=== PATIENT | male | born 1940 | race African-American/Black ===

== ENCOUNTER 2019-02-22 10:07 | Inpatient (IN) ==
[2019-02-22] MEDS ORDERED: ONDANSETRON 4 MG/2 ML VIAL IV STA (10:39)
[2019-02-22] MEDS ORDERED: SODIUM CHLORIDE 0.9% 1,000 ML IV STA (10:39)
[2019-02-22 11:23] LABS: Basophils # 0.1 10*3/uL (0.0-0.2); Basophils % 0.5 % (0.0-0.8); Eosinophils # 0.1 10*3/uL (0.0-0.87); Hemoglobin 15.5 GM/DL (14.0-18.0); Immature Granulocytes % 0.5 %; Immature Granulocytes Absolute 0.05 #; Lymphocytes # 1.5 10*3/uL (1.4-4.0); Lymphocytes % 14.5 % (21.2-54.2); Mean Platelet Volume 11.3 FL (9.6-12.0); Monocytes % 9.9 % (1.7-12.7); NRBC # 0.04 10*3/uL; Neutrophils % 73.6 % (38.7-73.9); Platelet Count 270 T/CUMM (130-400); Red Cell Distribution Width 14.4 % (9.3-17.3); White Blood Count 10.5 T/CUMM (4-12)
[2019-02-22 11:41] LABS: Albumin 3.6 G/DL (3.4-5.0); Bilirubin,Total 1.2 MG/DL (0.2-1.0); Calcium 8.8 MG/DL (8.5-10.1); Osmolality,Calculated 298.8 MOS/KG (273-304); Total Protein 6.5 G/DL (6.4-8.3)
[2019-02-22 12:01] LABS: Amorphous Crystals,Urine Few /HPF (Few); Apearance,Urine Slightly Hazy (Clear); Bilirubin,Urine Negative (Negative); Blood, Urine Negative (Negative); Glucose,Urine (UA) Negative (Negative); Hyaline Casts,Urine 58 /LPF (0-3); Ketones,Urine Negative (Negative); Mucus,Urine Occasional /LPF (Occasional); Nitrite,Urine Negative (Negative); Protein,Urine 100 MG/DL; Squamous Epithelial Cell,Urine Occasional /HPF (0-10); Urine Color Yellow (Yellow); Urine Specific Gravity 1.016 (1.001-1.035); Urine Urobilinogen < 2.0 EU/DL (0.2-1.0)
[2019-02-22 12:09] LABS: Barbiturates Screen,Urine Negative (Negative); Benzodiazepines Screen,Urine Negative (Negative); Cannabinoid Screen,Urine Negative (Negative); Opiate Screen,Urine Negative (Negative); Phencyclidine Screen,Urine Negative (Negative)
[2019-02-22] MEDS ORDERED: ACETAMINOPHEN 325 MG TABLET PO PRN (14:01)
[2019-02-22] MEDS ORDERED: MORPHINE 4 MG/1 ML VIAL IV PRN (14:01)
[2019-02-22] MEDS ORDERED: DEXTROSE 10% 250 ML BAG IV PRN (14:01)
[2019-02-22] MEDS ORDERED: GLUCAGON 1 MG VIAL IM PRN (14:01)
[2019-02-22] MEDS ORDERED: ALBUTEROL 2.5 MG/3 ML NEB RESP TX PRN (14:01)
[2019-02-22] MEDS ORDERED: ENOXAPARIN 30 MG/0.3 ML SYRINGE SUBCUT SCH (14:30)
[2019-02-22] MEDS ORDERED: SODIUM CHLORIDE 0.9% 500 ML IV ONE ×2 (16:07→22:33)
[2019-02-22] MEDS: INSULIN LISPRO 100 UNIT/ML SUBCUT SCH ×2 (17:50→22:07)
[2019-02-22] MEDS: SODIUM CHLORIDE 0.9% 1,000 ML IV SCH (18:27)
[2019-02-22] MEDS: ATORVASTATIN 20 MG TABLET PO SCH (19:18)
[2019-02-22 20:31] LABS: Apearance,Urine Slightly Hazy (Clear); Bacteria,Urine Occasional /HPF (Few); Bilirubin,Urine Negative (Negative); Blood, Urine Large mg/dL (Negative); Glucose,Urine (UA) Negative (Negative); Hyaline Casts,Urine 57 /LPF (0-3); Ketones,Urine Negative (Negative); Mucus,Urine Occasional /LPF (Occasional); Nitrite,Urine Negative (Negative); Protein,Urine 100 MG/DL; RBC,Urine 12 /HPF (0-4); Urine Color Amber (Yellow); Urine Specific Gravity 1.019 (1.001-1.035); Urine Urobilinogen < 2.0 EU/DL (0.2-1.0); WBC,Urine 9 /HPF (0-6)
[2019-02-22] MEDS: APIXABAN 2.5 MG TABLET PO SCH (22:00)
[2019-02-22] MEDS: ASCORBIC ACID 500 MG TABLET PO SCH (22:00)
[2019-02-22] MEDS: FLECAINIDE 50 MG TABLET PO SCH (22:00)
[2019-02-23] MEDS: SODIUM CHLORIDE 0.9% 1,000 ML IV SCH ×2 (04:30→18:43)
[2019-02-23 06:26] LABS: Basophils % 0.1 % (0.0-0.8); Hematocrit 45.6 VOL% (42.0-52.0); Immature Granulocytes % 0.6 %; Immature Granulocytes Absolute 0.13 #; Lymphocytes # 1.1 10*3/uL (1.4-4.0); Lymphocytes % 5.2 % (21.2-54.2); Mean Corpuscular HGB Conc 32.9 GM/DL (32-36); Mean Corpuscular Volume 87.5 FL (87-102); Monocytes % 5.6 % (1.7-12.7); Neutrophils % 88.5 % (38.7-73.9); Platelet Count 247 T/CUMM (130-400); Red Blood Count 5.21 MC/CUMM (3.8-5.5); Red Cell Distribution Width 14.5 % (9.3-17.3); White Blood Count 20.7 T/CUMM (4-12)
[2019-02-23 06:49] LABS: Lymphocytes 2 % (20-55); Nucleated Red Blood Cells 2 (0-5); Platelet Estimate Adequate; Segmented Neutrophils 95 % (50-85); Total Cells Counted 100
[2019-02-23 06:52] LABS: Calcium 8.4 MG/DL (8.5-10.1); Osmolality,Calculated 307.4 MOS/KG (273-304)
[2019-02-23] MEDS: INSULIN LISPRO 100 UNIT/ML SUBCUT SCH ×4 (07:22→20:22)
[2019-02-23] MEDS: FLECAINIDE 50 MG TABLET PO SCH ×2 (08:58→20:21)
[2019-02-23] MEDS: ASPIRIN EC 81 MG TABLET PO SCH (08:59)
[2019-02-23] MEDS: DIGOXIN 0.125 MG TABLET PO SCH (08:59)
[2019-02-23] MEDS: PANTOPRAZOLE 40 MG TABLET PO SCH (08:59)
[2019-02-23] MEDS: ASCORBIC ACID 500 MG TABLET PO SCH ×2 (08:59→20:22)
[2019-02-23] MEDS: APIXABAN 2.5 MG TABLET PO SCH ×2 (08:59→20:22)
[2019-02-23] MEDS ORDERED: PIPERACILLIN/TAZOBACTAM 3,375 MG in SODIUM CHLORIDE 0.9% 100 ML IV ONE (14:21)
[2019-02-23] MEDS: ATORVASTATIN 20 MG TABLET PO SCH (20:21)
[2019-02-23] MEDS: PIPERACILLIN/TAZOBACTAM 2,250 MG in SODIUM CHLORIDE 0.9% 100 ML IV SCH (23:13)
[2019-02-24] MEDS: PIPERACILLIN/TAZOBACTAM 2,250 MG in SODIUM CHLORIDE 0.9% 100 ML IV SCH ×2 (06:18→14:56)
[2019-02-24 07:06] LABS: Basophils % 0.3 % (0.0-0.8); Eosinophils % 0.3 % (0.00-10.9); Hematocrit 45.4 VOL% (42.0-52.0); Immature Granulocytes % 0.6 %; Immature Granulocytes Absolute 0.06 #; Lymphocytes # 1.1 10*3/uL (1.4-4.0); Lymphocytes % 10.1 % (21.2-54.2); Mean Corpuscular HGB Conc 30.8 GM/DL (32-36); Mean Corpuscular Volume 93.2 FL (87-102); Mean Platelet Volume 11.6 FL (9.6-12.0); Monocytes % 9.3 % (1.7-12.7); NRBC # 0.21 10*3/uL; Neutrophils % 79.4 % (38.7-73.9); Platelet Count 174 T/CUMM (130-400); Red Blood Count 4.87 MC/CUMM (3.8-5.5); Red Cell Distribution Width 14.6 % (9.3-17.3); White Blood Count 10.8 T/CUMM (4-12)
[2019-02-24 07:20] LABS: Osmolality,Calculated 300.1 MOS/KG (273-304)
[2019-02-24] MEDS: INSULIN LISPRO 100 UNIT/ML SUBCUT SCH ×4 (07:34→22:09)
[2019-02-24] MEDS: SODIUM CHLORIDE 0.9% 1,000 ML IV SCH ×3 (07:34→22:56)
[2019-02-24] MEDS: ONDANSETRON 4 MG/2 ML VIAL IV PRN (07:35)
[2019-02-24 07:43] LABS: Albumin 2.4 G/DL (3.4-5.0); Bilirubin,Direct 0.56 MG/DL (0.0-0.20); Bilirubin,Indirect 0.8 MG/DL (0.0-1.0); Bilirubin,Total 1.4 MG/DL (0.2-1.0)
[2019-02-24] MEDS ORDERED: FUROSEMIDE 40 MG/4 ML VIAL IV ONE (08:18)
[2019-02-24] MEDS ORDERED: ALUM/MAG/SIMETH/LIDO VISC 1:1 30 ML BOTTLE PO ONE (08:18)
[2019-02-24] MEDS: DOCUSATE SODIUM 100 MG CAPSULE PO SCH ×2 (09:53→20:40)
[2019-02-24] MEDS: DIGOXIN 0.125 MG TABLET PO SCH (09:53)
[2019-02-24] MEDS: FLECAINIDE 50 MG TABLET PO SCH ×2 (09:53→20:40)
[2019-02-24] MEDS: POLYETHYLENE GLYCOL POWDER 17 GM PACK PO SCH (09:53)
[2019-02-24] MEDS: APIXABAN 2.5 MG TABLET PO SCH ×2 (09:54→20:40)
[2019-02-24] MEDS: ASPIRIN EC 81 MG TABLET PO SCH (09:54)
[2019-02-24] MEDS: ASCORBIC ACID 500 MG TABLET PO SCH ×2 (09:54→20:40)
[2019-02-24] MEDS: PANTOPRAZOLE 40 MG TABLET PO SCH (09:54)
[2019-02-24] MEDS: SODIUM BICARBONATE 650 MG TABLET PO SCH ×2 (15:19→20:40)
[2019-02-24] MEDS: ATORVASTATIN 20 MG TABLET PO SCH (20:40)
[2019-02-25] MEDS: PIPERACILLIN/TAZOBACTAM 2,250 MG in SODIUM CHLORIDE 0.9% 100 ML IV SCH ×3 (00:06→17:59)
[2019-02-25 05:33] LABS: Basophils % 0.2 % (0.0-0.8); Eosinophils # 0.1 10*3/uL (0.0-0.87); Eosinophils % 1.2 % (0.00-10.9); Hematocrit 41.1 VOL% (42.0-52.0); Hemoglobin 13.4 GM/DL (14.0-18.0); Immature Granulocytes % 0.5 %; Immature Granulocytes Absolute 0.04 #; Lymphocytes % 12.3 % (21.2-54.2); Mean Corpuscular HGB Conc 32.6 GM/DL (32-36); Mean Corpuscular Volume 86.9 FL (87-102); Mean Platelet Volume 11.4 FL (9.6-12.0); Monocytes % 9.3 % (1.7-12.7); NRBC # 0.07 10*3/uL; Neutrophils % 76.5 % (38.7-73.9); Platelet Count 209 T/CUMM (130-400); Red Blood Count 4.73 MC/CUMM (3.8-5.5); Red Cell Distribution Width 14.2 % (9.3-17.3); White Blood Count 8.5 T/CUMM (4-12)
[2019-02-25 06:16] LABS: Calcium 7.8 MG/DL (8.5-10.1); Osmolality,Calculated 292.2 MOS/KG (273-304)
[2019-02-25] MEDS: INSULIN LISPRO 100 UNIT/ML SUBCUT SCH ×4 (07:50→20:11)
[2019-02-25] MEDS: POLYETHYLENE GLYCOL POWDER 17 GM PACK PO SCH (08:20)
[2019-02-25] MEDS: SODIUM BICARBONATE 650 MG TABLET PO SCH ×2 (08:20→20:10)
[2019-02-25] MEDS: FLECAINIDE 50 MG TABLET PO SCH ×2 (08:20→20:11)
[2019-02-25] MEDS: APIXABAN 2.5 MG TABLET PO SCH ×2 (08:20→20:11)
[2019-02-25] MEDS: PANTOPRAZOLE 40 MG TABLET PO SCH (08:20)
[2019-02-25] MEDS: ASPIRIN EC 81 MG TABLET PO SCH (08:20)
[2019-02-25] MEDS: DOCUSATE SODIUM 100 MG CAPSULE PO SCH ×2 (08:20→20:11)
[2019-02-25] MEDS: ASCORBIC ACID 500 MG TABLET PO SCH ×2 (08:20→20:11)
[2019-02-25] MEDS: SODIUM CHLORIDE 0.9% 1,000 ML IV SCH (09:48)
[2019-02-25] MEDS: SODIUM BICARB INJ 100 MEQ in STERILE WATER INJ 1,000 ML IV SCH (10:00)
[2019-02-25] MEDS: DIGOXIN 0.25 MG TABLET PO SCH (12:25)
[2019-02-25] MEDS: ATORVASTATIN 20 MG TABLET PO SCH (17:59)
[2019-02-25] MEDS: ONDANSETRON 4 MG/2 ML VIAL IV PRN (23:54)
[2019-02-26] MEDS: PIPERACILLIN/TAZOBACTAM 2,250 MG in SODIUM CHLORIDE 0.9% 100 ML IV SCH ×3 (03:22→17:04)
[2019-02-26 06:09] LABS: Basophils % 0.2 % (0.0-0.8); Eosinophils # 0.1 10*3/uL (0.0-0.87); Eosinophils % 1.7 % (0.00-10.9); Hematocrit 42.4 VOL% (42.0-52.0); Hemoglobin 13.8 GM/DL (14.0-18.0); Immature Granulocytes % 0.5 %; Immature Granulocytes Absolute 0.04 #; Lymphocytes # 1.2 10*3/uL (1.4-4.0); Lymphocytes % 15.1 % (21.2-54.2); Mean Corpuscular HGB Conc 32.5 GM/DL (32-36); Mean Corpuscular Volume 87.8 FL (87-102); Mean Platelet Volume 11.1 FL (9.6-12.0); Monocytes % 10.4 % (1.7-12.7); NRBC # 0.02 10*3/uL; Neutrophils % 72.1 % (38.7-73.9); Platelet Count 185 T/CUMM (130-400); Red Blood Count 4.83 MC/CUMM (3.8-5.5); Red Cell Distribution Width 14.4 % (9.3-17.3); White Blood Count 8.1 T/CUMM (4-12)
[2019-02-26 08:56] LABS: Calcium 8.3 MG/DL (8.5-10.1); Osmolality,Calculated 296.7 MOS/KG (273-304)
[2019-02-26] MEDS: DOCUSATE SODIUM 100 MG CAPSULE PO SCH ×2 (09:03→21:56)
[2019-02-26] MEDS: INSULIN LISPRO 100 UNIT/ML SUBCUT SCH ×4 (09:03→21:56)
[2019-02-26] MEDS: APIXABAN 2.5 MG TABLET PO SCH ×2 (09:03→21:56)
[2019-02-26] MEDS: FLECAINIDE 100 MG TABLET PO SCH ×2 (09:03→21:57)
[2019-02-26] MEDS: SODIUM BICARBONATE 650 MG TABLET PO SCH ×2 (09:04→21:57)
[2019-02-26] MEDS: PANTOPRAZOLE 40 MG TABLET PO SCH (09:04)
[2019-02-26] MEDS: ASCORBIC ACID 500 MG TABLET PO SCH ×2 (09:04→21:57)
[2019-02-26] MEDS: ASPIRIN EC 81 MG TABLET PO SCH (09:04)
[2019-02-26] MEDS: POLYETHYLENE GLYCOL POWDER 17 GM PACK PO SCH (09:04)
[2019-02-26] MEDS: METOPROLOL TARTRATE 25 MG TABLET PO SCH ×2 (09:05→21:57)
[2019-02-26] MEDS: SODIUM BICARB INJ 100 MEQ in STERILE WATER INJ 1,000 ML IV SCH (10:20)
[2019-02-26] MEDS: DIGOXIN 0.25 MG TABLET PO SCH (13:40)
[2019-02-26] MEDS: SODIUM CHLORIDE 0.45% 1,000 ML IV SCH (15:00)
[2019-02-27] MEDS: PIPERACILLIN/TAZOBACTAM 2,250 MG in SODIUM CHLORIDE 0.9% 100 ML IV SCH ×3 (02:38→18:55)
[2019-02-27 05:33] LABS: Basophils % 0.2 % (0.0-0.8); Eosinophils # 0.2 10*3/uL (0.0-0.87); Eosinophils % 1.8 % (0.00-10.9); Hematocrit 41.8 VOL% (42.0-52.0); Hemoglobin 13.7 GM/DL (14.0-18.0); Immature Granulocytes % 0.7 %; Immature Granulocytes Absolute 0.06 #; Lymphocytes # 1.2 10*3/uL (1.4-4.0); Lymphocytes % 14.8 % (21.2-54.2); Mean Corpuscular HGB Conc 32.8 GM/DL (32-36); Mean Corpuscular Volume 86.4 FL (87-102); Monocytes % 10.5 % (1.7-12.7); NRBC # 0.04 10*3/uL; Platelet Count 244 T/CUMM (130-400); Red Blood Count 4.84 MC/CUMM (3.8-5.5); Red Cell Distribution Width 14.3 % (9.3-17.3); White Blood Count 8.4 T/CUMM (4-12)
[2019-02-27 06:00] LABS: Calcium 8.4 MG/DL (8.5-10.1); Osmolality,Calculated 296.5 MOS/KG (273-304)
[2019-02-27] MEDS ORDERED: MIDAZOLAM 2 MG/2 ML VIAL IV ONE ×2 (08:36)
[2019-02-27] MEDS ORDERED: MIDAZOLAM 2 MG/2 ML VIAL ONE (08:36)
[2019-02-27] MEDS ORDERED: HYDROmorphone 2 MG/1 ML VIAL IV ONE (08:36)
[2019-02-27] MEDS: INSULIN LISPRO 100 UNIT/ML SUBCUT SCH ×4 (09:15→21:37)
[2019-02-27] MEDS: ASPIRIN EC 81 MG TABLET PO SCH (10:48)
[2019-02-27] MEDS: ASCORBIC ACID 500 MG TABLET PO SCH ×2 (10:48→21:37)
[2019-02-27] MEDS: DOCUSATE SODIUM 100 MG CAPSULE PO SCH ×2 (10:48→21:37)
[2019-02-27] MEDS: SODIUM BICARBONATE 650 MG TABLET PO SCH ×2 (10:48→21:37)
[2019-02-27] MEDS: APIXABAN 2.5 MG TABLET PO SCH ×2 (10:48→21:37)
[2019-02-27] MEDS: PANTOPRAZOLE 40 MG TABLET PO SCH (10:49)
[2019-02-27] MEDS: FLECAINIDE 100 MG TABLET PO SCH ×2 (10:49→21:37)
[2019-02-27] MEDS: METOPROLOL TARTRATE 25 MG TABLET PO SCH ×2 (10:49→21:37)
[2019-02-27] MEDS: POLYETHYLENE GLYCOL POWDER 17 GM PACK PO SCH (10:49)
[2019-02-27] MEDS: SODIUM CHLORIDE 0.45% 1,000 ML IV SCH (13:03)
[2019-02-27] MEDS: DIGOXIN 0.25 MG TABLET PO SCH (16:37)
[2019-02-28] MEDS: PIPERACILLIN/TAZOBACTAM 2,250 MG in SODIUM CHLORIDE 0.9% 100 ML IV SCH ×2 (01:49→09:36)
[2019-02-28 05:47] LABS: Basophils % 0.2 % (0.0-0.8); Eosinophils # 0.1 10*3/uL (0.0-0.87); Eosinophils % 0.6 % (0.00-10.9); Hematocrit 47.3 VOL% (42.0-52.0); Hemoglobin 14.9 GM/DL (14.0-18.0); Immature Granulocytes % 0.8 %; Immature Granulocytes Absolute 0.07 #; Lymphocytes # 1.2 10*3/uL (1.4-4.0); Mean Corpuscular HGB Conc 31.5 GM/DL (32-36); Mean Corpuscular Volume 89.1 FL (87-102); Mean Platelet Volume 11.1 FL (9.6-12.0); Monocytes % 12.3 % (1.7-12.7); NRBC # 0.09 10*3/uL; Neutrophils % 72.1 % (38.7-73.9); Platelet Count 223 T/CUMM (130-400); Red Blood Count 5.31 MC/CUMM (3.8-5.5); Red Cell Distribution Width 14.5 % (9.3-17.3); White Blood Count 8.3 T/CUMM (4-12)
[2019-02-28 06:35] LABS: Calcium 8.6 MG/DL (8.5-10.1); Osmolality,Calculated 283.5 MOS/KG (273-304)
[2019-02-28] MEDS: SODIUM CHLORIDE 0.45% 1,000 ML IV SCH (08:10)
[2019-02-28] MEDS: INSULIN LISPRO 100 UNIT/ML SUBCUT SCH ×4 (08:12→21:34)
[2019-02-28] MEDS: FLECAINIDE 100 MG TABLET PO SCH ×2 (08:33→21:34)
[2019-02-28] MEDS: ASPIRIN EC 81 MG TABLET PO SCH (08:33)
[2019-02-28] MEDS: ASCORBIC ACID 500 MG TABLET PO SCH ×2 (08:33→21:34)
[2019-02-28] MEDS: DOCUSATE SODIUM 100 MG CAPSULE PO SCH ×2 (08:33→21:34)
[2019-02-28] MEDS: PANTOPRAZOLE 40 MG TABLET PO SCH (08:33)
[2019-02-28] MEDS: APIXABAN 2.5 MG TABLET PO SCH ×2 (08:34→21:34)
[2019-02-28] MEDS: POLYETHYLENE GLYCOL POWDER 17 GM PACK PO SCH (08:34)
[2019-02-28] MEDS: METOPROLOL TARTRATE 25 MG TABLET PO SCH ×2 (08:35→21:34)
[2019-02-28] MEDS: hydrALAZINE 25 MG TABLET PO SCH ×3 (08:35→21:33)
[2019-02-28] MEDS ORDERED: SODIUM BICARBONATE 50 MEQ/50 ML VIAL IV ONE (08:36)
[2019-02-28] MEDS: SODIUM BICARBONATE 650 MG TABLET PO SCH ×2 (08:38→21:33)
[2019-02-28] MEDS: DIGOXIN 0.25 MG TABLET PO SCH (13:55)
[2019-03-01 06:06] LABS: Basophils % 0.3 % (0.0-0.8); Eosinophils # 0.1 10*3/uL (0.0-0.87); Hematocrit 48.2 VOL% (42.0-52.0); Hemoglobin 15.6 GM/DL (14.0-18.0); Lymphocytes # 1.5 10*3/uL (1.4-4.0); Lymphocytes % 15.4 % (21.2-54.2); Mean Corpuscular HGB Conc 32.4 GM/DL (32-36); Mean Corpuscular Volume 87.3 FL (87-102); Mean Platelet Volume 10.9 FL (9.6-12.0); Monocytes % 12.2 % (1.7-12.7); NRBC # 0.07 10*3/uL; Neutrophils % 70.1 % (38.7-73.9); Platelet Count 268 T/CUMM (130-400); Red Blood Count 5.52 MC/CUMM (3.8-5.5); Red Cell Distribution Width 15.3 % (9.3-17.3); White Blood Count 9.7 T/CUMM (4-12)
[2019-03-01 07:07] LABS: Albumin 2.4 G/DL (3.4-5.0); Bilirubin,Direct 0.44 MG/DL (0.0-0.20); Bilirubin,Indirect 0.7 MG/DL (0.0-1.0); Bilirubin,Total 1.1 MG/DL (0.2-1.0); Calcium 8.6 MG/DL (8.5-10.1); Osmolality,Calculated 280.7 MOS/KG (273-304); Total Protein 6.3 G/DL (6.4-8.3)
[2019-03-01] MEDS: INSULIN LISPRO 100 UNIT/ML SUBCUT SCH ×4 (07:43→22:33)
[2019-03-01] MEDS: ASCORBIC ACID 500 MG TABLET PO SCH ×2 (09:11→22:32)
[2019-03-01] MEDS: ASPIRIN EC 81 MG TABLET PO SCH (09:11)
[2019-03-01] MEDS: PANTOPRAZOLE 40 MG TABLET PO SCH (09:11)
[2019-03-01] MEDS: DOCUSATE SODIUM 100 MG CAPSULE PO SCH ×2 (09:11→22:32)
[2019-03-01] MEDS: FLECAINIDE 100 MG TABLET PO SCH ×2 (09:11→23:03)
[2019-03-01] MEDS: hydrALAZINE 25 MG TABLET PO SCH ×3 (09:11→22:33)
[2019-03-01] MEDS: SODIUM BICARBONATE 650 MG TABLET PO SCH ×2 (09:11→22:32)
[2019-03-01] MEDS: POLYETHYLENE GLYCOL POWDER 17 GM PACK PO SCH (09:11)
[2019-03-01] MEDS: METOPROLOL TARTRATE 25 MG TABLET PO SCH ×2 (09:11→22:34)
[2019-03-01] MEDS: APIXABAN 2.5 MG TABLET PO SCH ×2 (09:11→22:33)
[2019-03-01] MEDS: DIGOXIN 0.25 MG TABLET PO SCH (13:40)
[2019-03-01] MEDS: ALBUMIN 25% 25 GM in PREMIX 1 EACH IV SCH (18:27)
[2019-03-02] MEDS: ALBUMIN 25% 25 GM in PREMIX 1 EACH IV SCH ×3 (00:46→16:44)
[2019-03-02 06:35] LABS: Basophils % 0.1 % (0.0-0.8); Eosinophils # 0.1 10*3/uL (0.0-0.87); Eosinophils % 0.8 % (0.00-10.9); Hematocrit 39.3 VOL% (42.0-52.0); Hemoglobin 13.3 GM/DL (14.0-18.0); Immature Granulocytes Absolute 0.12 #; Lymphocytes # 1.1 10*3/uL (1.4-4.0); Lymphocytes % 9.8 % (21.2-54.2); Mean Corpuscular HGB Conc 33.8 GM/DL (32-36); Mean Corpuscular Volume 85.2 FL (87-102); Mean Platelet Volume 11.1 FL (9.6-12.0); Monocytes % 10.8 % (1.7-12.7); NRBC # 0.03 10*3/uL; Neutrophils % 77.5 % (38.7-73.9); Platelet Count 224 T/CUMM (130-400); Red Blood Count 4.61 MC/CUMM (3.8-5.5); Red Cell Distribution Width 14.2 % (9.3-17.3); White Blood Count 11.6 T/CUMM (4-12)
[2019-03-02 06:59] LABS: Calcium 9.2 MG/DL (8.5-10.1); Osmolality,Calculated 290.8 MOS/KG (273-304)
[2019-03-02 07:14] LABS: Albumin 3.2 G/DL (3.4-5.0); Bilirubin,Total 1.7 MG/DL (0.2-1.0); Calcium 8.9 MG/DL (8.5-10.1); Total Protein 6.5 G/DL (6.4-8.3)
[2019-03-02 10:29] LABS: Hepatitis B Core IgM Quant 0.27 Index; Hepatitis B Surface Ag Quant < 0.10 Index; Hepatitis B Surface Ag Result Negative (Negative); Hepatitis C Virus Ab Quant < 0.02 Index; Hepatitis C Virus Ab Result Negative (Negative)
[2019-03-02] MEDS: INSULIN LISPRO 100 UNIT/ML SUBCUT SCH ×3 (11:06→16:52)
[2019-03-02] MEDS: DOCUSATE SODIUM 100 MG CAPSULE PO SCH (11:07)
[2019-03-02] MEDS: hydrALAZINE 25 MG TABLET PO SCH ×2 (11:07→15:48)
[2019-03-02] MEDS: ASPIRIN EC 81 MG TABLET PO SCH (11:07)
[2019-03-02] MEDS: ASCORBIC ACID 500 MG TABLET PO SCH (11:08)
[2019-03-02] MEDS: PANTOPRAZOLE 40 MG TABLET PO SCH (11:08)
[2019-03-02] MEDS: APIXABAN 2.5 MG TABLET PO SCH (11:08)
[2019-03-02] MEDS: METOPROLOL TARTRATE 25 MG TABLET PO SCH (11:08)
[2019-03-02] MEDS: SODIUM BICARBONATE 650 MG TABLET PO SCH (11:08)
[2019-03-02] MEDS: POLYETHYLENE GLYCOL POWDER 17 GM PACK PO SCH (11:09)
[2019-03-02] MEDS: FLECAINIDE 100 MG TABLET PO SCH (11:12)
[2019-03-02] MEDS: DIGOXIN 0.25 MG TABLET PO SCH (12:44)
[2019-03-02 16:30] VITALS: BP 110/79
== END 2019-03-02 17:24 | disposition swing bed (61) | DRG 682 ==
LOC: N.EDINP 10:07 → N.ED 10:07 → SUATTDRO 12:18 → N.5E 15:36 → N.ICU 16:54 → N.TELES 03-01 00:43
PROVIDERS: ADMIT Internal Medicine; ATTEND Family Medicine

== ENCOUNTER 2019-03-13 15:57 | Inpatient (IN) ==
[2019-03-13] MEDS ORDERED: ZALEPLON 5 MG CAPSULE PO PRN (16:09)
[2019-03-13] MEDS ORDERED: ONDANSETRON 4 MG/2 ML VIAL IV PRN (16:09)
[2019-03-13] MEDS ORDERED: MAGNESIUM SULF RIDER 2 GM in PREMIX 1 EACH IV PRN (16:09)
[2019-03-13] MEDS ORDERED: diphenhydrAMINE CAP 25 MG CAPSULE PO PRN (16:09)
[2019-03-13] MEDS ORDERED: BISACODYL 5 MG TABLET PO PRN (16:09)
[2019-03-13] MEDS ORDERED: MAGNESIUM SULF RIDER 4 GM in PREMIX 1 EACH IV PRN (16:09)
[2019-03-13] MEDS ORDERED: guaiFENesin/DM ER 600-30 MG TABLET PO PRN (16:09)
[2019-03-13] MEDS ORDERED: LACTULOSE 20 GM/30 ML UDCUP PO PRN (16:09)
[2019-03-13] MEDS ORDERED: ACETAMINOPHEN 325 MG TABLET PO PRN (16:09)
[2019-03-13] MEDS ORDERED: DEXTROSE 10% 250 ML BAG IV PRN (16:26)
[2019-03-13] MEDS ORDERED: GLUCAGON 1 MG VIAL IM PRN (16:26)
[2019-03-13 17:12] LABS: Basophils % 0.3 % (0.0-0.8); Eosinophils # 0.3 10*3/uL (0.0-0.87); Eosinophils % 2.8 % (0.00-10.9); Hematocrit 37.7 VOL% (42.0-52.0); Hemoglobin 12.3 GM/DL (14.0-18.0); Immature Granulocytes % 0.8 %; Immature Granulocytes Absolute 0.08 #; Lymphocytes # 0.9 10*3/uL (1.4-4.0); Lymphocytes % 9.4 % (21.2-54.2); Mean Corpuscular HGB Conc 32.6 GM/DL (32-36); Mean Corpuscular Volume 86.9 FL (87-102); Mean Platelet Volume 10.4 FL (9.6-12.0); Monocytes % 12.1 % (1.7-12.7); Neutrophils % 74.6 % (38.7-73.9); Platelet Count 271 T/CUMM (130-400); Red Blood Count 4.34 MC/CUMM (3.8-5.5); Red Cell Distribution Width 14.4 % (9.3-17.3); White Blood Count 9.5 T/CUMM (4-12)
[2019-03-13] MEDS: INSULIN LISPRO 100 UNIT/ML SUBCUT SCH ×2 (17:26→21:16)
[2019-03-13] MEDS: FUROSEMIDE 40 MG/4 ML VIAL IV SCH (17:26)
[2019-03-13 17:40] LABS: Troponin I 0.254 NG/ML (0.00-0.045)
[2019-03-13 17:42] LABS: Bilirubin,Total 1.2 MG/DL (0.2-1.0); Calcium 8.9 MG/DL (8.5-10.1); Osmolality,Calculated 298.4 MOS/KG (273-304); Thyroid Stimulating Hormone 1.35 uIU/ml (0.358-3.74)
[2019-03-13 18:04] LABS: Apearance,Urine CLEAR (Clear); Bilirubin,Urine Negative (Negative); Blood, Urine Negative (Negative); Glucose,Urine (UA) Negative (Negative); Hyaline Casts,Urine 8 /LPF (0-3); Ketones,Urine Negative (Negative); Mucus,Urine Occasional /LPF (Occasional); Nitrite,Urine Negative (Negative); Protein,Urine Negative; RBC,Urine 1 /HPF (0-4); Squamous Epithelial Cell,Urine Occasional /HPF (0-10); Urine Color Yellow (Yellow); Urine Specific Gravity 1.012 (1.001-1.035); WBC,Urine 1 /HPF (0-6)
[2019-03-13 20:16] LABS: Troponin I 0.285 NG/ML (0.00-0.045)
[2019-03-13] MEDS: SODIUM BICARBONATE 650 MG TABLET PO SCH (21:15)
[2019-03-13] MEDS: APIXABAN 2.5 MG TABLET PO SCH (21:15)
[2019-03-13] MEDS: ASCORBIC ACID 500 MG TABLET PO SCH (21:15)
[2019-03-13] MEDS: hydrALAZINE 25 MG TABLET PO SCH (21:16)
[2019-03-13 22:32] LABS: Troponin I 0.268 NG/ML (0.00-0.045)
[2019-03-14 04:56] LABS: Basophils % 0.3 % (0.0-0.8); Eosinophils # 0.3 10*3/uL (0.0-0.87); Eosinophils % 4.1 % (0.00-10.9); Hematocrit 34.9 VOL% (42.0-52.0); Hemoglobin 11.5 GM/DL (14.0-18.0); Immature Granulocytes % 0.8 %; Immature Granulocytes Absolute 0.06 #; Lymphocytes # 0.9 10*3/uL (1.4-4.0); Lymphocytes % 10.9 % (21.2-54.2); Mean Corpuscular Volume 86.4 FL (87-102); Neutrophils % 71.9 % (38.7-73.9); Platelet Count 241 T/CUMM (130-400); Red Blood Count 4.04 MC/CUMM (3.8-5.5); Red Cell Distribution Width 14.4 % (9.3-17.3)
[2019-03-14 05:40] LABS: Calcium 8.9 MG/DL (8.5-10.1); Osmolality,Calculated 292.4 MOS/KG (273-304); Risk Ratio 1.94
[2019-03-14] MEDS ORDERED: metOLazone 5 MG TABLET PO SCH (09:00)
[2019-03-14] MEDS: FUROSEMIDE 40 MG/4 ML VIAL IV SCH ×2 (09:18→16:35)
[2019-03-14] MEDS: DOBUTamine 500 MG/250 ML PREMIX IV SCH (09:25)
[2019-03-14] MEDS: INSULIN LISPRO 100 UNIT/ML SUBCUT SCH ×4 (09:43→23:33)
[2019-03-14] MEDS: METOPROLOL SUCCINATE XL 50 MG TABLET PO SCH (10:15)
[2019-03-14] MEDS: sitaGLIPtin 25 MG TABLET PO SCH (10:15)
[2019-03-14] MEDS: hydrALAZINE 25 MG TABLET PO SCH ×3 (10:16→23:00)
[2019-03-14] MEDS: POLYETHYLENE GLYCOL POWDER 17 GM PACK PO SCH (10:16)
[2019-03-14] MEDS: APIXABAN 2.5 MG TABLET PO SCH ×2 (10:16→23:00)
[2019-03-14] MEDS: PANTOPRAZOLE 40 MG TABLET PO SCH (10:16)
[2019-03-14] MEDS: DIGOXIN 0.125 MG TABLET PO SCH (10:16)
[2019-03-14] MEDS: ASCORBIC ACID 500 MG TABLET PO SCH ×2 (10:16→23:00)
[2019-03-14] MEDS: ASPIRIN EC 81 MG TABLET PO SCH (10:16)
[2019-03-14] MEDS: SODIUM BICARBONATE 650 MG TABLET PO SCH ×2 (10:16→23:01)
[2019-03-14] MEDS ORDERED: AMIODARONE 200 MG TABLET PO SCH ×2 (14:00→14:30)
[2019-03-14] MEDS: AMIODARONE 200 MG TABLET PO SCH ×2 (14:58→22:59)
[2019-03-14] MEDS: ISOSORBIDE DINITRATE 20 MG TABLET PO SCH ×2 (15:01→22:59)
[2019-03-15 05:31] LABS: Basophils % 0.3 % (0.0-0.8); Eosinophils # 0.5 10*3/uL (0.0-0.87); Eosinophils % 6.6 % (0.00-10.9); Hematocrit 31.8 VOL% (42.0-52.0); Hemoglobin 10.6 GM/DL (14.0-18.0); Immature Granulocytes % 0.7 %; Immature Granulocytes Absolute 0.05 #; Lymphocytes # 0.9 10*3/uL (1.4-4.0); Lymphocytes % 12.8 % (21.2-54.2); Mean Corpuscular HGB Conc 33.3 GM/DL (32-36); Mean Corpuscular Volume 84.6 FL (87-102); Mean Platelet Volume 10.9 FL (9.6-12.0); Monocytes % 14.3 % (1.7-12.7); Neutrophils % 65.3 % (38.7-73.9); Platelet Count 227 T/CUMM (130-400); Red Blood Count 3.76 MC/CUMM (3.8-5.5)
[2019-03-15 05:52] LABS: Calcium 8.7 MG/DL (8.5-10.1); Osmolality,Calculated 283.8 MOS/KG (273-304)
[2019-03-15] MEDS: INSULIN LISPRO 100 UNIT/ML SUBCUT SCH ×4 (07:51→22:02)
[2019-03-15] MEDS: FUROSEMIDE 40 MG/4 ML VIAL IV SCH ×2 (08:53→16:40)
[2019-03-15] MEDS: DOBUTamine 500 MG/250 ML PREMIX IV SCH (08:55)
[2019-03-15] MEDS: DIGOXIN 0.125 MG TABLET PO SCH (09:44)
[2019-03-15] MEDS: AMIODARONE 200 MG TABLET PO SCH ×2 (09:44→22:00)
[2019-03-15] MEDS: POTASSIUM CHLORIDE 20 MEQ TABLET PO SCH ×2 (09:44→22:02)
[2019-03-15] MEDS: ASPIRIN EC 81 MG TABLET PO SCH (09:44)
[2019-03-15] MEDS: APIXABAN 2.5 MG TABLET PO SCH ×2 (09:44→22:00)
[2019-03-15] MEDS: hydrALAZINE 25 MG TABLET PO SCH ×3 (09:45→22:00)
[2019-03-15] MEDS: PANTOPRAZOLE 40 MG TABLET PO SCH (09:45)
[2019-03-15] MEDS: ASCORBIC ACID 500 MG TABLET PO SCH ×2 (09:45→22:01)
[2019-03-15] MEDS: sitaGLIPtin 25 MG TABLET PO SCH (09:45)
[2019-03-15] MEDS: METOPROLOL SUCCINATE XL 50 MG TABLET PO SCH (09:45)
[2019-03-15] MEDS: POLYETHYLENE GLYCOL POWDER 17 GM PACK PO SCH (09:45)
[2019-03-15] MEDS: ISOSORBIDE DINITRATE 20 MG TABLET PO SCH ×3 (09:45→22:01)
[2019-03-15] MEDS ORDERED: POTASSIUM CHLORIDE 20 MEQ TABLET PO ONE (11:23)
[2019-03-16 05:16] LABS: Basophils % 0.4 % (0.0-0.8); Eosinophils # 0.4 10*3/uL (0.0-0.87); Eosinophils % 6.1 % (0.00-10.9); Hematocrit 32.8 VOL% (42.0-52.0); Hemoglobin 10.9 GM/DL (14.0-18.0); Immature Granulocytes Absolute 0.07 #; Lymphocytes # 0.9 10*3/uL (1.4-4.0); Lymphocytes % 13.3 % (21.2-54.2); Mean Corpuscular HGB Conc 33.2 GM/DL (32-36); Mean Corpuscular Volume 85.2 FL (87-102); Mean Platelet Volume 10.5 FL (9.6-12.0); Monocytes % 15.3 % (1.7-12.7); Neutrophils % 63.9 % (38.7-73.9); Platelet Count 224 T/CUMM (130-400); Red Blood Count 3.85 MC/CUMM (3.8-5.5); Red Cell Distribution Width 13.9 % (9.3-17.3); White Blood Count 7.1 T/CUMM (4-12)
[2019-03-16 05:30] LABS: Calcium 8.7 MG/DL (8.5-10.1); Osmolality,Calculated 284.7 MOS/KG (273-304)
[2019-03-16] MEDS: INSULIN LISPRO 100 UNIT/ML SUBCUT SCH ×4 (09:23→20:31)
[2019-03-16] MEDS: FUROSEMIDE 40 MG/4 ML VIAL IV SCH ×2 (09:26→15:38)
[2019-03-16] MEDS: POLYETHYLENE GLYCOL POWDER 17 GM PACK PO SCH (09:26)
[2019-03-16] MEDS: AMIODARONE 200 MG TABLET PO SCH ×2 (09:26→20:28)
[2019-03-16] MEDS: METOPROLOL SUCCINATE XL 50 MG TABLET PO SCH (09:26)
[2019-03-16] MEDS: sitaGLIPtin 25 MG TABLET PO SCH (09:27)
[2019-03-16] MEDS: POTASSIUM CHLORIDE 20 MEQ TABLET PO SCH ×2 (09:27→20:27)
[2019-03-16] MEDS: PANTOPRAZOLE 40 MG TABLET PO SCH (09:27)
[2019-03-16] MEDS: hydrALAZINE 25 MG TABLET PO SCH ×3 (09:27→20:28)
[2019-03-16] MEDS: ASPIRIN EC 81 MG TABLET PO SCH (09:27)
[2019-03-16] MEDS: ISOSORBIDE DINITRATE 20 MG TABLET PO SCH ×3 (09:27→20:27)
[2019-03-16] MEDS: MAGNESIUM CHLORIDE 64 MG TABLET PO SCH ×2 (09:27→20:28)
[2019-03-16] MEDS: DIGOXIN 0.125 MG TABLET PO SCH (09:27)
[2019-03-16] MEDS: APIXABAN 2.5 MG TABLET PO SCH ×2 (09:27→20:28)
[2019-03-16] MEDS: ASCORBIC ACID 500 MG TABLET PO SCH ×2 (09:28→20:28)
[2019-03-16] MEDS: MORPHINE 4 MG/1 ML VIAL IV PRN (20:26)
[2019-03-16] MEDS: SPIRONOLACTONE 25 MG TABLET PO SCH (20:28)
[2019-03-17] MEDS: MORPHINE 4 MG/1 ML VIAL IV PRN (00:07)
[2019-03-17 05:45] LABS: Basophils % 0.5 % (0.0-0.8); Eosinophils # 0.5 10*3/uL (0.0-0.87); Hematocrit 34.5 VOL% (42.0-52.0); Hemoglobin 11.4 GM/DL (14.0-18.0); Immature Granulocytes % 1.2 %; Immature Granulocytes Absolute 0.09 #; Lymphocytes % 12.8 % (21.2-54.2); Mean Corpuscular Volume 84.4 FL (87-102); Mean Platelet Volume 10.6 FL (9.6-12.0); Neutrophils % 63.5 % (38.7-73.9); Platelet Count 246 T/CUMM (130-400); Red Blood Count 4.09 MC/CUMM (3.8-5.5); White Blood Count 7.7 T/CUMM (4-12)
[2019-03-17 06:05] LABS: Calcium 8.9 MG/DL (8.5-10.1); Osmolality,Calculated 281.8 MOS/KG (273-304)
[2019-03-17 06:14] LABS: Eosinophils 7 % (0-10); Lymphocytes 12 % (20-55); Segmented Neutrophils 70 % (50-85); Total Cells Counted 100
[2019-03-17 06:15] LABS: Hypochromasia 1+; Microcytosis 1+
[2019-03-17 06:16] LABS: Platelet Estimate Normal; Target Cells Slight
[2019-03-17] MEDS: INSULIN LISPRO 100 UNIT/ML SUBCUT SCH ×4 (08:22→23:08)
[2019-03-17] MEDS: FUROSEMIDE 40 MG/4 ML VIAL IV SCH ×2 (08:47→15:15)
[2019-03-17] MEDS: MAGNESIUM CHLORIDE 64 MG TABLET PO SCH ×2 (08:53→21:58)
[2019-03-17] MEDS: POLYETHYLENE GLYCOL POWDER 17 GM PACK PO SCH (08:53)
[2019-03-17] MEDS: DIGOXIN 0.125 MG TABLET PO SCH (08:54)
[2019-03-17] MEDS: ISOSORBIDE DINITRATE 20 MG TABLET PO SCH ×3 (08:54→21:57)
[2019-03-17] MEDS: APIXABAN 2.5 MG TABLET PO SCH ×2 (08:54→21:59)
[2019-03-17] MEDS: sitaGLIPtin 25 MG TABLET PO SCH (08:54)
[2019-03-17] MEDS: SPIRONOLACTONE 25 MG TABLET PO SCH ×2 (08:54→21:58)
[2019-03-17] MEDS: ASCORBIC ACID 500 MG TABLET PO SCH ×2 (08:54→21:58)
[2019-03-17] MEDS: ASPIRIN EC 81 MG TABLET PO SCH (08:54)
[2019-03-17] MEDS: METOPROLOL SUCCINATE XL 50 MG TABLET PO SCH (08:54)
[2019-03-17] MEDS: hydrALAZINE 25 MG TABLET PO SCH ×3 (08:55→23:07)
[2019-03-17] MEDS: AMIODARONE 200 MG TABLET PO SCH ×2 (08:55→21:57)
[2019-03-17] MEDS: POTASSIUM CHLORIDE 20 MEQ TABLET PO SCH ×2 (08:55→21:59)
[2019-03-17] MEDS: PANTOPRAZOLE 40 MG TABLET PO SCH (08:55)
[2019-03-17] MEDS: metOLazone 5 MG TABLET PO SCH (11:20)
[2019-03-18 05:42] LABS: Basophils # 0.1 10*3/uL (0.0-0.2); Basophils % 0.6 % (0.0-0.8); Eosinophils # 0.5 10*3/uL (0.0-0.87); Eosinophils % 6.4 % (0.00-10.9); Hematocrit 35.9 VOL% (42.0-52.0); Hemoglobin 11.8 GM/DL (14.0-18.0); Immature Granulocytes % 0.9 %; Immature Granulocytes Absolute 0.08 #; Lymphocytes % 12.2 % (21.2-54.2); Mean Corpuscular HGB Conc 32.9 GM/DL (32-36); Mean Corpuscular Volume 85.5 FL (87-102); Mean Platelet Volume 10.3 FL (9.6-12.0); Monocytes % 15.5 % (1.7-12.7); Neutrophils % 64.4 % (38.7-73.9); Platelet Count 269 T/CUMM (130-400); White Blood Count 8.4 T/CUMM (4-12)
[2019-03-18 06:03] LABS: Calcium 9.1 MG/DL (8.5-10.1); Osmolality,Calculated 276.1 MOS/KG (273-304)
[2019-03-18] MEDS: INSULIN LISPRO 100 UNIT/ML SUBCUT SCH ×4 (07:35→20:40)
[2019-03-18] MEDS: POLYETHYLENE GLYCOL POWDER 17 GM PACK PO SCH (08:25)
[2019-03-18] MEDS: metOLazone 5 MG TABLET PO SCH (08:26)
[2019-03-18] MEDS: FUROSEMIDE 40 MG/4 ML VIAL IV SCH (08:26)
[2019-03-18] MEDS: POTASSIUM CHLORIDE 20 MEQ TABLET PO SCH ×2 (08:27→20:41)
[2019-03-18] MEDS: AMIODARONE 200 MG TABLET PO SCH ×2 (08:27→09:57)
[2019-03-18] MEDS: MAGNESIUM CHLORIDE 64 MG TABLET PO SCH ×2 (08:27→20:41)
[2019-03-18] MEDS: PANTOPRAZOLE 40 MG TABLET PO SCH (08:27)
[2019-03-18] MEDS: ASCORBIC ACID 500 MG TABLET PO SCH ×2 (08:28→20:41)
[2019-03-18] MEDS: DIGOXIN 0.125 MG TABLET PO SCH (08:28)
[2019-03-18] MEDS: APIXABAN 2.5 MG TABLET PO SCH ×2 (08:28→20:41)
[2019-03-18] MEDS: ASPIRIN EC 81 MG TABLET PO SCH (08:28)
[2019-03-18] MEDS: SPIRONOLACTONE 25 MG TABLET PO SCH ×2 (08:28→20:40)
[2019-03-18] MEDS: sitaGLIPtin 25 MG TABLET PO SCH (08:28)
[2019-03-18] MEDS: hydrALAZINE 25 MG TABLET PO SCH ×3 (08:29→20:41)
[2019-03-18] MEDS: ISOSORBIDE DINITRATE 20 MG TABLET PO SCH ×3 (08:29→20:41)
[2019-03-18] MEDS: METOPROLOL SUCCINATE XL 50 MG TABLET PO SCH (08:29)
[2019-03-18] MEDS: MORPHINE 4 MG/1 ML VIAL IV PRN ×2 (19:59→23:55)
[2019-03-19] MEDS: MORPHINE 4 MG/1 ML VIAL IV PRN (03:24)
[2019-03-19 06:16] LABS: Basophils # 0.1 10*3/uL (0.0-0.2); Basophils % 0.8 % (0.0-0.8); Eosinophils # 0.6 10*3/uL (0.0-0.87); Eosinophils % 6.6 % (0.00-10.9); Hematocrit 37.6 VOL% (42.0-52.0); Hemoglobin 12.2 GM/DL (14.0-18.0); Immature Granulocytes % 1.1 %; Immature Granulocytes Absolute 0.09 #; Lymphocytes # 1.2 10*3/uL (1.4-4.0); Lymphocytes % 14.3 % (21.2-54.2); Mean Corpuscular HGB Conc 32.4 GM/DL (32-36); Mean Platelet Volume 10.7 FL (9.6-12.0); Monocytes % 15.3 % (1.7-12.7); Neutrophils % 61.9 % (38.7-73.9); Platelet Count 272 T/CUMM (130-400); Red Blood Count 4.37 MC/CUMM (3.8-5.5); Red Cell Distribution Width 13.8 % (9.3-17.3); White Blood Count 8.5 T/CUMM (4-12)
[2019-03-19 06:44] LABS: Calcium 8.8 MG/DL (8.5-10.1)
[2019-03-19] MEDS: INSULIN LISPRO 100 UNIT/ML SUBCUT SCH ×4 (08:07→22:25)
[2019-03-19] MEDS: ASPIRIN EC 81 MG TABLET PO SCH (08:53)
[2019-03-19] MEDS: POTASSIUM CHLORIDE 20 MEQ TABLET PO SCH ×2 (08:54→22:31)
[2019-03-19] MEDS: DIGOXIN 0.125 MG TABLET PO SCH (08:54)
[2019-03-19] MEDS: APIXABAN 2.5 MG TABLET PO SCH ×2 (08:54→22:24)
[2019-03-19] MEDS: PANTOPRAZOLE 40 MG TABLET PO SCH (08:54)
[2019-03-19] MEDS: MAGNESIUM CHLORIDE 64 MG TABLET PO SCH ×2 (08:54→22:24)
[2019-03-19] MEDS: sitaGLIPtin 25 MG TABLET PO SCH (08:54)
[2019-03-19] MEDS: SPIRONOLACTONE 25 MG TABLET PO SCH ×2 (08:54→22:24)
[2019-03-19] MEDS: AMIODARONE 200 MG TABLET PO SCH (08:55)
[2019-03-19] MEDS: ISOSORBIDE DINITRATE 20 MG TABLET PO SCH ×3 (08:55→22:24)
[2019-03-19] MEDS: hydrALAZINE 25 MG TABLET PO SCH ×3 (08:55→22:24)
[2019-03-19] MEDS: METOPROLOL SUCCINATE XL 50 MG TABLET PO SCH (08:55)
[2019-03-19] MEDS: ASCORBIC ACID 500 MG TABLET PO SCH ×2 (09:00→22:25)
[2019-03-19] MEDS: POLYETHYLENE GLYCOL POWDER 17 GM PACK PO SCH (09:00)
[2019-03-19] MEDS ORDERED: FUROSEMIDE 40 MG/4 ML VIAL IV SCH (10:37)
[2019-03-20 05:36] LABS: Calcium 8.6 MG/DL (8.5-10.1); Osmolality,Calculated 273.2 MOS/KG (273-304)
[2019-03-20] MEDS: INSULIN LISPRO 100 UNIT/ML SUBCUT SCH ×4 (08:47→21:51)
[2019-03-20] MEDS: DIGOXIN 0.125 MG TABLET PO SCH (09:49)
[2019-03-20] MEDS: ASPIRIN EC 81 MG TABLET PO SCH (09:49)
[2019-03-20] MEDS: metOLazone 5 MG TABLET PO SCH (09:50)
[2019-03-20] MEDS: METOPROLOL SUCCINATE XL 50 MG TABLET PO SCH (09:50)
[2019-03-20] MEDS: sitaGLIPtin 25 MG TABLET PO SCH (09:50)
[2019-03-20] MEDS: MAGNESIUM CHLORIDE 64 MG TABLET PO SCH ×2 (09:50→21:49)
[2019-03-20] MEDS: SPIRONOLACTONE 25 MG TABLET PO SCH ×2 (09:50→21:50)
[2019-03-20] MEDS: AMIODARONE 200 MG TABLET PO SCH (09:50)
[2019-03-20] MEDS: PANTOPRAZOLE 40 MG TABLET PO SCH (09:51)
[2019-03-20] MEDS: APIXABAN 2.5 MG TABLET PO SCH ×2 (09:51→21:49)
[2019-03-20] MEDS: ASCORBIC ACID 500 MG TABLET PO SCH ×2 (09:51→21:50)
[2019-03-20] MEDS: POTASSIUM CHLORIDE 20 MEQ TABLET PO SCH ×2 (09:51→21:49)
[2019-03-20] MEDS: ISOSORBIDE DINITRATE 20 MG TABLET PO SCH ×3 (09:51→21:50)
[2019-03-20] MEDS: hydrALAZINE 25 MG TABLET PO SCH ×3 (09:51→21:50)
[2019-03-20] MEDS: POLYETHYLENE GLYCOL POWDER 17 GM PACK PO SCH (12:12)
[2019-03-20] MEDS ORDERED: FUROSEMIDE 40 MG/4 ML VIAL IV SCH (16:00)
[2019-03-21 07:20] LABS: Calcium 8.9 MG/DL (8.5-10.1); Osmolality,Calculated 280.8 MOS/KG (273-304)
[2019-03-21] MEDS: ASCORBIC ACID 500 MG TABLET PO SCH ×2 (11:00→22:05)
[2019-03-21] MEDS: ASPIRIN EC 81 MG TABLET PO SCH (11:00)
[2019-03-21] MEDS: SPIRONOLACTONE 25 MG TABLET PO SCH ×2 (11:00→22:04)
[2019-03-21] MEDS: AMIODARONE 200 MG TABLET PO SCH (11:01)
[2019-03-21] MEDS: METOPROLOL SUCCINATE XL 50 MG TABLET PO SCH (11:01)
[2019-03-21] MEDS: ISOSORBIDE DINITRATE 20 MG TABLET PO SCH ×3 (11:01→22:04)
[2019-03-21] MEDS: metOLazone 5 MG TABLET PO SCH (11:01)
[2019-03-21] MEDS: hydrALAZINE 25 MG TABLET PO SCH ×3 (11:02→22:04)
[2019-03-21] MEDS: MAGNESIUM CHLORIDE 64 MG TABLET PO SCH ×2 (11:02→22:04)
[2019-03-21] MEDS: sitaGLIPtin 25 MG TABLET PO SCH (11:02)
[2019-03-21] MEDS: POTASSIUM CHLORIDE 20 MEQ TABLET PO SCH (11:02)
[2019-03-21] MEDS: FUROSEMIDE 80 MG TABLET PO SCH ×2 (11:02→16:29)
[2019-03-21] MEDS: PANTOPRAZOLE 40 MG TABLET PO SCH (11:02)
[2019-03-21] MEDS: POLYETHYLENE GLYCOL POWDER 17 GM PACK PO SCH (11:03)
[2019-03-21] MEDS: INSULIN LISPRO 100 UNIT/ML SUBCUT SCH ×4 (11:07→22:05)
[2019-03-21] MEDS: DIGOXIN 0.125 MG TABLET PO SCH (11:23)
[2019-03-21] MEDS: APIXABAN 2.5 MG TABLET PO SCH ×2 (11:23→22:04)
[2019-03-22 05:17] LABS: Calcium 8.8 MG/DL (8.5-10.1); Osmolality,Calculated 273.2 MOS/KG (273-304)
[2019-03-22] MEDS ORDERED: POTASSIUM CHLORIDE 20 MEQ TABLET PO SCH (09:00)
[2019-03-22] MEDS: ASPIRIN EC 81 MG TABLET PO SCH (09:25)
[2019-03-22] MEDS: ASCORBIC ACID 500 MG TABLET PO SCH (09:26)
[2019-03-22] MEDS: MAGNESIUM CHLORIDE 64 MG TABLET PO SCH (09:26)
[2019-03-22] MEDS: DIGOXIN 0.125 MG TABLET PO SCH (09:26)
[2019-03-22] MEDS: metOLazone 5 MG TABLET PO SCH (09:26)
[2019-03-22] MEDS: AMIODARONE 200 MG TABLET PO SCH (09:27)
[2019-03-22] MEDS: FUROSEMIDE 80 MG TABLET PO SCH (09:27)
[2019-03-22] MEDS: SPIRONOLACTONE 25 MG TABLET PO SCH (09:27)
[2019-03-22] MEDS: ISOSORBIDE DINITRATE 20 MG TABLET PO SCH (09:27)
[2019-03-22] MEDS: hydrALAZINE 25 MG TABLET PO SCH (09:27)
[2019-03-22] MEDS: PANTOPRAZOLE 40 MG TABLET PO SCH (09:27)
[2019-03-22] MEDS: APIXABAN 2.5 MG TABLET PO SCH (09:28)
[2019-03-22] MEDS: sitaGLIPtin 25 MG TABLET PO SCH (09:28)
[2019-03-22] MEDS: POLYETHYLENE GLYCOL POWDER 17 GM PACK PO SCH (09:28)
[2019-03-22] MEDS: METOPROLOL SUCCINATE XL 50 MG TABLET PO SCH (09:28)
[2019-03-22] MEDS: INSULIN LISPRO 100 UNIT/ML SUBCUT SCH ×2 (10:36→12:50)
[2019-03-22 11:43] VITALS: BP 104/71
== END 2019-03-22 14:47 | disposition home health service (06) | DRG 291 ==
LOC: N.TELEN 16:25
PROVIDERS: ADMIT Internal Medicine Cardiovascular Disease; ATTEND Internal Medicine Cardiovascular Disease

== ENCOUNTER 2019-04-07 11:08 | Inpatient (IN) ==
[2019-04-07] MEDS ORDERED: SODIUM CHLORIDE 0.9% 500 ML IV STA (12:35)
[2019-04-07 12:44] LABS: Basophils % 0.3 % (0.0-0.8); Eosinophils # 0.2 10*3/uL (0.0-0.87); Eosinophils % 1.3 % (0.00-10.9); Hematocrit 46.5 VOL% (42.0-52.0); Hemoglobin 15.7 GM/DL (14.0-18.0); Immature Granulocytes % 1.7 %; Immature Granulocytes Absolute 0.22 #; Lymphocytes # 1.2 10*3/uL (1.4-4.0); Lymphocytes % 9.8 % (21.2-54.2); Mean Corpuscular HGB Conc 33.8 GM/DL (32-36); Mean Corpuscular Volume 81.2 FL (87-102); Mean Platelet Volume 10.5 FL (9.6-12.0); Neutrophils % 73.9 % (38.7-73.9); Platelet Count 296 T/CUMM (130-400); Red Blood Count 5.73 MC/CUMM (3.8-5.5); Red Cell Distribution Width 13.8 % (9.3-17.3); White Blood Count 12.6 T/CUMM (4-12)
[2019-04-07 12:56] LABS: Albumin 3.2 G/DL (3.4-5.0); Bilirubin,Total 0.8 MG/DL (0.2-1.0); Calcium 9.3 MG/DL (8.5-10.1); Osmolality,Calculated 284.2 MOS/KG (273-304); Total Protein 8.1 G/DL (6.4-8.3)
[2019-04-07 13:47] LABS: Apearance,Urine CLEAR (Clear); Bacteria,Urine Occasional /HPF (Few); Bilirubin,Urine Negative (Negative); Blood, Urine Negative (Negative); Glucose,Urine (UA) Negative (Negative); Hyaline Casts,Urine 53 /LPF (0-3); Ketones,Urine Negative (Negative); Mucus,Urine Occasional /LPF (Occasional); Nitrite,Urine Negative (Negative); Protein,Urine Negative; RBC,Urine 1 /HPF (0-4); Squamous Epithelial Cell,Urine Occasional /HPF (0-10); Urine Color Yellow (Yellow); Urine Specific Gravity 1.011 (1.001-1.035); Urine Urobilinogen < 2.0 EU/DL (0.2-1.0); WBC,Urine <1 /HPF (0-6)
[2019-04-07] MEDS: SODIUM CHLOR 0.9% KCL 20 MEQ 20 MEQ/1,000 ML BAG IV SCH ×2 (14:07→23:21)
[2019-04-07] MEDS ORDERED: ACETAMINOPHEN 325 MG TABLET PO PRN (14:16)
[2019-04-07] MEDS ORDERED: ONDANSETRON 4 MG/2 ML VIAL IV PRN (14:16)
[2019-04-07] MEDS ORDERED: DEXTROSE 10% 25 GM/250 ML BAG IV PRN (16:02)
[2019-04-07] MEDS ORDERED: GLUCAGON 1 MG VIAL IM PRN (16:02)
[2019-04-07 17:15] LABS: CKMB % 6.5 %
[2019-04-07 17:18] LABS: Troponin I 1.34 NG/ML (0.00-0.045)
[2019-04-07] MEDS: INSULIN LISPRO 100 UNIT/ML SUBCUT SCH ×2 (17:41→21:03)
[2019-04-07 20:00] LABS: CKMB % 7.3 %
[2019-04-07 20:03] LABS: Troponin I 1.24 NG/ML (0.00-0.045)
[2019-04-07] MEDS ORDERED: hydrALAZINE 25 MG TABLET PO SCH (21:00)
[2019-04-07] MEDS: hydrALAZINE 10 MG TABLET PO SCH (21:04)
[2019-04-07] MEDS: MIRTAZAPINE 15 MG TABLET PO SCH (21:04)
[2019-04-07] MEDS: APIXABAN 2.5 MG TABLET PO SCH (21:04)
[2019-04-07] MEDS: DOCUSATE SODIUM 100 MG CAPSULE PO SCH (21:04)
[2019-04-07] MEDS: ASCORBIC ACID 500 MG TABLET PO SCH (21:04)
[2019-04-07] MEDS: ISOSORBIDE DINITRATE 20 MG TABLET PO SCH (21:04)
[2019-04-08 05:01] LABS: Basophils % 0.3 % (0.0-0.8); Eosinophils # 0.2 10*3/uL (0.0-0.87); Eosinophils % 1.7 % (0.00-10.9); Hematocrit 40.6 VOL% (42.0-52.0); Hemoglobin 13.7 GM/DL (14.0-18.0); Immature Granulocytes % 2.1 %; Immature Granulocytes Absolute 0.28 #; Lymphocytes # 1.3 10*3/uL (1.4-4.0); Lymphocytes % 9.6 % (21.2-54.2); Mean Corpuscular HGB Conc 33.7 GM/DL (32-36); Mean Corpuscular Volume 81.2 FL (87-102); Mean Platelet Volume 10.6 FL (9.6-12.0); Monocytes % 12.7 % (1.7-12.7); Neutrophils % 73.6 % (38.7-73.9); Platelet Count 253 T/CUMM (130-400); Red Cell Distribution Width 13.8 % (9.3-17.3); White Blood Count 13.1 T/CUMM (4-12)
[2019-04-08 05:33] LABS: CKMB % 8.9 %
[2019-04-08 05:36] LABS: Troponin I 1.21 NG/ML (0.00-0.045)
[2019-04-08 05:42] LABS: Albumin 2.8 G/DL (3.4-5.0); Bilirubin,Total 0.8 MG/DL (0.2-1.0); Calcium 8.7 MG/DL (8.5-10.1); Osmolality,Calculated 292.1 MOS/KG (273-304); Thyroid Stimulating Hormone 0.632 uIU/ml (0.358-3.74); Total Protein 6.9 G/DL (6.4-8.3)
[2019-04-08] MEDS: INSULIN LISPRO 100 UNIT/ML SUBCUT SCH ×4 (07:26→20:55)
[2019-04-08] MEDS: POTASSIUM CHLORIDE 20 MEQ TABLET PO SCH (08:27)
[2019-04-08] MEDS: hydrALAZINE 10 MG TABLET PO SCH ×2 (08:27→20:55)
[2019-04-08] MEDS: ISOSORBIDE DINITRATE 20 MG TABLET PO SCH ×3 (08:27→20:55)
[2019-04-08] MEDS: APIXABAN 2.5 MG TABLET PO SCH ×2 (08:27→20:55)
[2019-04-08] MEDS: ASCORBIC ACID 500 MG TABLET PO SCH ×2 (08:27→20:56)
[2019-04-08] MEDS: DOCUSATE SODIUM 100 MG CAPSULE PO SCH ×2 (08:27→20:55)
[2019-04-08] MEDS: ASPIRIN EC 81 MG TABLET PO SCH (08:27)
[2019-04-08] MEDS: PANTOPRAZOLE 40 MG TABLET PO SCH (08:28)
[2019-04-08] MEDS ORDERED: AMIODARONE 200 MG TABLET PO SCH (09:00)
[2019-04-08] MEDS: SODIUM CHLOR 0.9% KCL 20 MEQ 20 MEQ/1,000 ML BAG IV SCH (09:48)
[2019-04-08] MEDS: POLYETHYLENE GLYCOL POWDER 17 GM PACK PO SCH (09:48)
[2019-04-08] MEDS: POTASSIUM CHLORIDE 20 MEQ TABLET PO PRN ×4 (13:48→18:12)
[2019-04-08] MEDS ORDERED: ZINC OXIDE PASTE 113 GM TUBE TOP PRN (15:53)
[2019-04-08] MEDS: MIRTAZAPINE 15 MG TABLET PO SCH (21:01)
[2019-04-09 05:07] LABS: Basophils # 0.1 10*3/uL (0.0-0.2); Basophils % 0.4 % (0.0-0.8); Eosinophils # 0.5 10*3/uL (0.0-0.87); Eosinophils % 3.7 % (0.00-10.9); Hematocrit 39.2 VOL% (42.0-52.0); Hemoglobin 12.9 GM/DL (14.0-18.0); Immature Granulocytes % 1.7 %; Immature Granulocytes Absolute 0.21 #; Lymphocytes # 1.4 10*3/uL (1.4-4.0); Lymphocytes % 11.3 % (21.2-54.2); Mean Corpuscular HGB Conc 32.9 GM/DL (32-36); Mean Corpuscular Volume 82.4 FL (87-102); Mean Platelet Volume 10.9 FL (9.6-12.0); Monocytes % 12.2 % (1.7-12.7); Neutrophils % 70.7 % (38.7-73.9); Platelet Count 242 T/CUMM (130-400); Red Blood Count 4.76 MC/CUMM (3.8-5.5); Red Cell Distribution Width 13.9 % (9.3-17.3); White Blood Count 12.2 T/CUMM (4-12)
[2019-04-09 05:38] LABS: Albumin 2.7 G/DL (3.4-5.0); Bilirubin,Total 1.2 MG/DL (0.2-1.0); Calcium 8.5 MG/DL (8.5-10.1); Osmolality,Calculated 282.1 MOS/KG (273-304); Total Protein 6.4 G/DL (6.4-8.3)
[2019-04-09] MEDS: INSULIN LISPRO 100 UNIT/ML SUBCUT SCH ×4 (08:16→20:36)
[2019-04-09] MEDS: DOCUSATE SODIUM 100 MG CAPSULE PO SCH ×2 (08:39→20:35)
[2019-04-09] MEDS: AMIODARONE 200 MG TABLET PO SCH (08:39)
[2019-04-09] MEDS: hydrALAZINE 10 MG TABLET PO SCH ×2 (08:40→20:37)
[2019-04-09] MEDS: POTASSIUM CHLORIDE 20 MEQ TABLET PO SCH (08:40)
[2019-04-09] MEDS: PANTOPRAZOLE 40 MG TABLET PO SCH (08:40)
[2019-04-09] MEDS: ISOSORBIDE DINITRATE 20 MG TABLET PO SCH ×3 (08:40→20:36)
[2019-04-09] MEDS: ASCORBIC ACID 500 MG TABLET PO SCH ×2 (08:40→20:36)
[2019-04-09] MEDS: APIXABAN 2.5 MG TABLET PO SCH ×2 (08:40→20:36)
[2019-04-09] MEDS: POLYETHYLENE GLYCOL POWDER 17 GM PACK PO SCH (08:41)
[2019-04-09] MEDS: ASPIRIN EC 81 MG TABLET PO SCH (08:43)
[2019-04-09] MEDS: FUROSEMIDE 80 MG TABLET PO SCH (10:44)
[2019-04-09] MEDS: MIRTAZAPINE 15 MG TABLET PO SCH (20:35)
[2019-04-10 04:55] LABS: Basophils % 0.4 % (0.0-0.8); Eosinophils # 0.4 10*3/uL (0.0-0.87); Eosinophils % 3.5 % (0.00-10.9); Hematocrit 36.7 VOL% (42.0-52.0); Hemoglobin 12.2 GM/DL (14.0-18.0); Immature Granulocytes % 1.4 %; Immature Granulocytes Absolute 0.15 #; Lymphocytes # 1.5 10*3/uL (1.4-4.0); Lymphocytes % 14.4 % (21.2-54.2); Mean Corpuscular HGB Conc 33.2 GM/DL (32-36); Mean Corpuscular Volume 81.9 FL (87-102); Mean Platelet Volume 10.8 FL (9.6-12.0); Monocytes % 12.6 % (1.7-12.7); Neutrophils % 67.7 % (38.7-73.9); Platelet Count 227 T/CUMM (130-400); Red Blood Count 4.48 MC/CUMM (3.8-5.5); Red Cell Distribution Width 13.9 % (9.3-17.3); White Blood Count 10.7 T/CUMM (4-12)
[2019-04-10 05:16] LABS: Albumin 2.5 G/DL (3.4-5.0); Calcium 8.3 MG/DL (8.5-10.1); Osmolality,Calculated 276.2 MOS/KG (273-304); Total Protein 6.1 G/DL (6.4-8.3)
[2019-04-10] MEDS: POTASSIUM CHLORIDE 20 MEQ TABLET PO PRN ×2 (05:56→12:38)
[2019-04-10] MEDS: INSULIN LISPRO 100 UNIT/ML SUBCUT SCH ×4 (07:58→21:52)
[2019-04-10] MEDS: POLYETHYLENE GLYCOL POWDER 17 GM PACK PO SCH (08:29)
[2019-04-10] MEDS: AMIODARONE 200 MG TABLET PO SCH (08:30)
[2019-04-10] MEDS: POTASSIUM CHLORIDE 20 MEQ TABLET PO SCH (08:30)
[2019-04-10] MEDS: PANTOPRAZOLE 40 MG TABLET PO SCH (08:30)
[2019-04-10] MEDS: hydrALAZINE 10 MG TABLET PO SCH ×2 (08:31→21:52)
[2019-04-10] MEDS: DOCUSATE SODIUM 100 MG CAPSULE PO SCH ×2 (08:31→21:52)
[2019-04-10] MEDS: ISOSORBIDE DINITRATE 20 MG TABLET PO SCH ×3 (08:31→21:52)
[2019-04-10] MEDS: ASPIRIN EC 81 MG TABLET PO SCH (08:31)
[2019-04-10] MEDS: APIXABAN 2.5 MG TABLET PO SCH ×2 (08:31→21:52)
[2019-04-10] MEDS: ASCORBIC ACID 500 MG TABLET PO SCH ×2 (08:31→21:52)
[2019-04-10] MEDS: FUROSEMIDE 80 MG TABLET PO SCH (08:31)
[2019-04-10] MEDS: MIRTAZAPINE 15 MG TABLET PO SCH (21:52)
[2019-04-10] MEDS: HYDROCORTISONE 25 MG SUPP RECTAL SCH (21:53)
[2019-04-11 05:17] LABS: Calcium 8.5 MG/DL (8.5-10.1); Osmolality,Calculated 274.2 MOS/KG (273-304)
[2019-04-11] MEDS: INSULIN LISPRO 100 UNIT/ML SUBCUT SCH ×2 (08:46→12:33)
[2019-04-11] MEDS: ASPIRIN EC 81 MG TABLET PO SCH (08:47)
[2019-04-11] MEDS: DOCUSATE SODIUM 100 MG CAPSULE PO SCH (08:47)
[2019-04-11] MEDS: ASCORBIC ACID 500 MG TABLET PO SCH (08:47)
[2019-04-11] MEDS: FUROSEMIDE 80 MG TABLET PO SCH (08:47)
[2019-04-11] MEDS: POTASSIUM CHLORIDE 20 MEQ TABLET PO PRN (08:47)
[2019-04-11] MEDS: POTASSIUM CHLORIDE 20 MEQ TABLET PO SCH (08:47)
[2019-04-11] MEDS: AMIODARONE 200 MG TABLET PO SCH (08:47)
[2019-04-11] MEDS: PANTOPRAZOLE 40 MG TABLET PO SCH (08:47)
[2019-04-11] MEDS: APIXABAN 2.5 MG TABLET PO SCH (08:47)
[2019-04-11] MEDS: ISOSORBIDE DINITRATE 20 MG TABLET PO SCH (08:47)
[2019-04-11] MEDS: hydrALAZINE 10 MG TABLET PO SCH (08:47)
[2019-04-11] MEDS: HYDROCORTISONE 25 MG SUPP RECTAL SCH (08:49)
[2019-04-11] MEDS: POLYETHYLENE GLYCOL POWDER 17 GM PACK PO SCH (08:49)
[2019-04-11 09:03] LABS: Basophils # 0.1 10*3/uL (0.0-0.2); Basophils % 0.5 % (0.0-0.8); Eosinophils # 0.4 10*3/uL (0.0-0.87); Eosinophils % 3.3 % (0.00-10.9); Hematocrit 41.7 VOL% (42.0-52.0); Hemoglobin 13.4 GM/DL (14.0-18.0); Immature Granulocytes % 1.4 %; Immature Granulocytes Absolute 0.16 #; Lymphocytes # 1.8 10*3/uL (1.4-4.0); Lymphocytes % 15.4 % (21.2-54.2); Mean Corpuscular HGB Conc 32.1 GM/DL (32-36); Mean Corpuscular Volume 83.4 FL (87-102); Mean Platelet Volume 10.3 FL (9.6-12.0); Monocytes % 11.5 % (1.7-12.7); Neutrophils % 67.9 % (38.7-73.9); Platelet Count 228 T/CUMM (130-400); Red Cell Distribution Width 14.2 % (9.3-17.3); White Blood Count 11.4 T/CUMM (4-12)
[2019-04-11] MEDS ORDERED: BISACODYL 10 MG SUPP RECTAL ONE (10:34)
[2019-04-11] MEDS ORDERED: POLYETHYLENE GLYCOL POWDER 17 GM PACK PO ONE (10:36)
[2019-04-11 12:40] VITALS: BP 113/80
[2019-04-11] MEDS ORDERED: POLYETHYLENE GLYCOL POWDER 17 GM PACK PO SCH (21:00)
== END 2019-04-11 15:30 | disposition home health service (06) | DRG 641 ==
LOC: EDUNIT# → EDBD → N.ED 11:08 → SUATTDRO 14:14 → N.EDINP 14:14 → N.5E 15:12
PROVIDERS: ADMIT Specialist; ATTEND Hospitalist

== ENCOUNTER 2021-06-25 12:15 | Inpatient (IN) ==
[2021-06-25 14:02] LABS: Basophils % 0.2 % (0.0-0.8); Eosinophils % 0.2 % (0.00-10.9); Hematocrit 41.7 VOL% (42.0-52.0); Hemoglobin 13.4 GM/DL (14.0-18.0); Immature Granulocytes % 0.8 %; Lymphocytes # 1.1 10*3/uL (1.4-4.0); Lymphocytes % 8.5 % (21.2-54.2); Mean Corpuscular HGB Conc 32.1 GM/DL (32-36); Mean Corpuscular Volume 81.3 FL (87-102); Monocytes % 9.9 % (1.7-12.7); NRBC # 0.14 10*3/uL; Neutrophils % 80.4 % (38.7-73.9); Platelet Count 260 T/CUMM (130-400); Red Blood Count 5.13 MC/CUMM (3.8-5.5); White Blood Count 12.7 T/CUMM (4-12)
[2021-06-25 14:19] LABS: Albumin 3.4 G/DL (3.4-5.0); Bilirubin,Total 2.5 MG/DL (0.20-1.00); Calcium 9.4 MG/DL (8.5-10.1); Osmolality,Calculated 290.5 MOS/KG (273-304); Potassium 4.8 MMOL/L (3.5-5.1); Total Protein 7.5 G/DL (6.4-8.2)
[2021-06-25] MEDS ORDERED: GLUCAGON 1 MG VIAL IM PRN (15:25)
[2021-06-25] MEDS ORDERED: DEXTROSE 50% 25 GM/50 ML SYRINGE IV PRN ×2 (15:25)
[2021-06-25] MEDS ORDERED: ONDANSETRON 4 MG/2 ML VIAL IV PRN (15:25)
[2021-06-25] MEDS ORDERED: ACETAMINOPHEN 325 MG TABLET PO PRN (15:25)
[2021-06-25] MEDS ORDERED: MAGNESIUM SULF RIDER 2 GM/50 ML PREMIX IV PRN (16:28)
[2021-06-25] MEDS ORDERED: MAGNESIUM SULF RIDER 4 GM/100 ML PREMIX IV PRN (16:28)
[2021-06-25] MEDS ORDERED: INSULIN REGULAR 100 UNIT/ML SUBCUT SCH (16:30)
[2021-06-25] MEDS ORDERED: FUROSEMIDE 40 MG/4 ML VIAL IV ONE (16:40)
[2021-06-25] MEDS ORDERED: INFLUENZA VIRUS VACCINE 0.5 ML SYRINGE IM ONE (17:31)
[2021-06-25] MEDS: DOBUTamine 500 MG/250 ML PREMIX IV SCH (17:38)
[2021-06-25] MEDS: ASCORBIC ACID 500 MG TABLET PO SCH (21:24)
[2021-06-25] MEDS: APIXABAN 2.5 MG TABLET PO SCH (21:24)
[2021-06-26 05:09] LABS: Basophils % 0.1 % (0.0-0.8); Eosinophils # 0.2 10*3/uL (0.0-0.87); Eosinophils % 2.7 % (0.00-10.9); Hemoglobin 12.7 GM/DL (14.0-18.0); Immature Granulocytes % 0.7 %; Immature Granulocytes Absolute 0.06 #; Lymphocytes # 0.9 10*3/uL (1.4-4.0); Lymphocytes % 9.8 % (21.2-54.2); Mean Corpuscular HGB Conc 32.6 GM/DL (32-36); Mean Corpuscular Volume 81.4 FL (87-102); Mean Platelet Volume 11.2 FL (9.6-12.0); Monocytes % 9.2 % (1.7-12.7); NRBC # 0.05 10*3/uL; Neutrophils % 77.5 % (38.7-73.9); Platelet Count 220 T/CUMM (130-400); Red Blood Count 4.79 MC/CUMM (3.8-5.5); Red Cell Distribution Width 15.9 % (9.3-17.3); White Blood Count 8.8 T/CUMM (4-12)
[2021-06-26 05:47] LABS: Albumin 2.9 G/DL (3.4-5.0); Bilirubin,Total 2.1 MG/DL (0.20-1.00); Osmolality,Calculated 292.2 MOS/KG (273-304); Risk Ratio 1.96; Total Protein 6.5 G/DL (6.4-8.2); VLDL Cholesterol 10.2 MG/DL
[2021-06-26] MEDS ORDERED: FUROSEMIDE 40 MG/4 ML VIAL IV SCH (08:00)
[2021-06-26] MEDS: ASPIRIN EC 81 MG TABLET PO SCH (08:03)
[2021-06-26] MEDS: PANTOPRAZOLE 40 MG TABLET PO SCH (08:03)
[2021-06-26] MEDS: TAMSULOSIN 0.4 MG CAPSULE PO SCH (08:03)
[2021-06-26] MEDS: DIGOXIN 0.125 MG TABLET PO SCH (08:04)
[2021-06-26] MEDS: ASCORBIC ACID 500 MG TABLET PO SCH ×2 (08:04→21:22)
[2021-06-26] MEDS: APIXABAN 2.5 MG TABLET PO SCH ×2 (08:04→21:22)
[2021-06-26] MEDS: FUROSEMIDE 40 MG/4 ML VIAL IV SCH ×2 (08:10→16:08)
[2021-06-26 09:06] LABS: Hepatitis B Core IgM Quant 0.17 Index; Hepatitis B Surface Ag Quant < 0.10 Index; Hepatitis B Surface Ag Result Non-Reactive (NonReactive); Hepatitis C Virus Ab Quant 0.14 Index; Hepatitis C Virus Ab Result Non-Reactive (NonReactive)
[2021-06-26] MEDS: POTASSIUM CHLORIDE 20 MEQ TABLET PO SCH (09:38)
[2021-06-26] MEDS: DOBUTamine 500 MG/250 ML PREMIX IV SCH (12:26)
[2021-06-27] MEDS: DOBUTamine 500 MG/250 ML PREMIX IV SCH ×2 (01:21→07:35)
[2021-06-27 05:48] LABS: Basophils % 0.1 % (0.0-0.8); Eosinophils # 0.4 10*3/uL (0.0-0.87); Eosinophils % 4.6 % (0.00-10.9); Hematocrit 37.5 VOL% (42.0-52.0); Hemoglobin 12.2 GM/DL (14.0-18.0); Immature Granulocytes % 0.5 %; Immature Granulocytes Absolute 0.04 #; Lymphocytes # 0.7 10*3/uL (1.4-4.0); Lymphocytes % 8.7 % (21.2-54.2); Mean Corpuscular HGB Conc 32.5 GM/DL (32-36); Mean Corpuscular Volume 81.2 FL (87-102); Mean Platelet Volume 10.9 FL (9.6-12.0); Monocytes % 11.1 % (1.7-12.7); NRBC # 0.02 10*3/uL; Platelet Count 211 T/CUMM (130-400); Red Blood Count 4.62 MC/CUMM (3.8-5.5); Red Cell Distribution Width 15.9 % (9.3-17.3); White Blood Count 7.8 T/CUMM (4-12)
[2021-06-27 06:11] LABS: Albumin 2.7 G/DL (3.4-5.0); Bilirubin,Total 2.3 MG/DL (0.20-1.00); Calcium 8.8 MG/DL (8.5-10.1); Osmolality,Calculated 294.7 MOS/KG (273-304); Potassium 4.4 MMOL/L (3.5-5.1); Total Protein 6.2 G/DL (6.4-8.2)
[2021-06-27] MEDS: PANTOPRAZOLE 40 MG TABLET PO SCH (08:21)
[2021-06-27] MEDS: TAMSULOSIN 0.4 MG CAPSULE PO SCH (08:21)
[2021-06-27] MEDS: ASCORBIC ACID 500 MG TABLET PO SCH ×2 (08:21→20:57)
[2021-06-27] MEDS: ASPIRIN EC 81 MG TABLET PO SCH (08:21)
[2021-06-27] MEDS: POTASSIUM CHLORIDE 20 MEQ TABLET PO SCH (08:21)
[2021-06-27] MEDS: APIXABAN 2.5 MG TABLET PO SCH ×2 (08:21→20:58)
[2021-06-27] MEDS: DIGOXIN 0.125 MG TABLET PO SCH (08:22)
[2021-06-27] MEDS: FUROSEMIDE 40 MG/4 ML VIAL IV SCH ×2 (08:26→15:53)
[2021-06-28] MEDS: DOBUTamine 500 MG/250 ML PREMIX IV SCH ×4 (01:45→23:27)
[2021-06-28 05:42] LABS: Basophils % 0.1 % (0.0-0.8); Eosinophils # 0.2 10*3/uL (0.0-0.87); Hematocrit 37.9 VOL% (42.0-52.0); Immature Granulocytes % 0.5 %; Immature Granulocytes Absolute 0.04 #; Lymphocytes # 0.6 10*3/uL (1.4-4.0); Lymphocytes % 7.7 % (21.2-54.2); Mean Corpuscular HGB Conc 31.7 GM/DL (32-36); Mean Platelet Volume 11.2 FL (9.6-12.0); Monocytes % 11.2 % (1.7-12.7); NRBC # 0.03 10*3/uL; Neutrophils % 77.5 % (38.7-73.9); Platelet Count 217 T/CUMM (130-400); Red Blood Count 4.62 MC/CUMM (3.8-5.5); Red Cell Distribution Width 15.8 % (9.3-17.3); White Blood Count 7.9 T/CUMM (4-12)
[2021-06-28 06:03] LABS: Albumin 2.6 G/DL (3.4-5.0); Bilirubin,Total 1.8 MG/DL (0.20-1.00); Calcium 8.6 MG/DL (8.5-10.1); Osmolality,Calculated 283.1 MOS/KG (273-304); Potassium 3.9 MMOL/L (3.5-5.1); Total Protein 6.1 G/DL (6.4-8.2)
[2021-06-28] MEDS: DIGOXIN 0.125 MG TABLET PO SCH (08:31)
[2021-06-28] MEDS: POTASSIUM CHLORIDE 20 MEQ TABLET PO SCH (08:31)
[2021-06-28] MEDS: TAMSULOSIN 0.4 MG CAPSULE PO SCH (08:31)
[2021-06-28] MEDS: ASCORBIC ACID 500 MG TABLET PO SCH ×2 (08:32→21:15)
[2021-06-28] MEDS: PANTOPRAZOLE 40 MG TABLET PO SCH (08:32)
[2021-06-28] MEDS: ASPIRIN EC 81 MG TABLET PO SCH (08:32)
[2021-06-28] MEDS: APIXABAN 2.5 MG TABLET PO SCH ×2 (08:32→21:15)
[2021-06-28] MEDS: FUROSEMIDE 40 MG/4 ML VIAL IV SCH ×2 (08:36→15:42)
[2021-06-28 17:28] LABS: Bacteria,Urine Many /HPF (Few); Bilirubin,Urine Negative (Negative); Blood, Urine Large mg/dL (Negative); Glucose,Urine (UA) Negative (Negative); Hyaline Casts,Urine 3 /LPF (0-3); Ketones,Urine Negative (Negative); Mucus,Urine Occasional /LPF (Occasional); Nitrite,Urine Negative (Negative); Protein,Urine 30 MG/DL; RBC,Urine 403 /HPF (0-4); Urine Appearance Slightly Hazy (Clear); Urine Color Yellow (Yellow); Urine Specific Gravity 1.013 (1.001-1.035)
[2021-06-29 05:39] LABS: Basophils % 0.1 % (0.0-0.8); Eosinophils # 0.4 10*3/uL (0.0-0.87); Hematocrit 36.3 VOL% (42.0-52.0); Hemoglobin 11.6 GM/DL (14.0-18.0); Immature Granulocytes % 0.7 %; Immature Granulocytes Absolute 0.05 #; Lymphocytes # 0.8 10*3/uL (1.4-4.0); Lymphocytes % 10.8 % (21.2-54.2); Mean Corpuscular Volume 81.6 FL (87-102); Mean Platelet Volume 10.5 FL (9.6-12.0); Monocytes % 13.4 % (1.7-12.7); Platelet Count 204 T/CUMM (130-400); Red Blood Count 4.45 MC/CUMM (3.8-5.5); Red Cell Distribution Width 15.8 % (9.3-17.3); White Blood Count 7.7 T/CUMM (4-12)
[2021-06-29 06:01] LABS: Albumin 2.5 G/DL (3.4-5.0); Bilirubin,Total 1.5 MG/DL (0.20-1.00); Calcium 8.4 MG/DL (8.5-10.1); Osmolality,Calculated 282.1 MOS/KG (273-304); Total Protein 6.2 G/DL (6.4-8.2)
[2021-06-29] MEDS: DIGOXIN 0.125 MG TABLET PO SCH (09:56)
[2021-06-29] MEDS: ASCORBIC ACID 500 MG TABLET PO SCH ×2 (09:58→20:56)
[2021-06-29] MEDS: TAMSULOSIN 0.4 MG CAPSULE PO SCH (09:58)
[2021-06-29] MEDS: APIXABAN 2.5 MG TABLET PO SCH ×2 (09:58→20:56)
[2021-06-29] MEDS: POTASSIUM CHLORIDE 20 MEQ TABLET PO SCH (09:58)
[2021-06-29] MEDS: PANTOPRAZOLE 40 MG TABLET PO SCH (09:58)
[2021-06-29] MEDS: ASPIRIN EC 81 MG TABLET PO SCH (09:58)
[2021-06-29] MEDS: FUROSEMIDE 40 MG/4 ML VIAL IV SCH ×2 (10:04→17:22)
[2021-06-29] MEDS: DOBUTamine 500 MG/250 ML PREMIX IV SCH (17:23)
[2021-06-30] MEDS: DOBUTamine 500 MG/250 ML PREMIX IV SCH (08:45)
[2021-06-30] MEDS: ASPIRIN EC 81 MG TABLET PO SCH (09:34)
[2021-06-30] MEDS: POTASSIUM CHLORIDE 20 MEQ TABLET PO SCH (09:34)
[2021-06-30] MEDS: TAMSULOSIN 0.4 MG CAPSULE PO SCH (09:34)
[2021-06-30] MEDS: PANTOPRAZOLE 40 MG TABLET PO SCH (09:34)
[2021-06-30] MEDS: APIXABAN 2.5 MG TABLET PO SCH ×2 (09:34→20:41)
[2021-06-30] MEDS: ASCORBIC ACID 500 MG TABLET PO SCH ×2 (09:34→20:41)
[2021-06-30] MEDS: DIGOXIN 0.125 MG TABLET PO SCH (09:35)
[2021-06-30] MEDS: FUROSEMIDE 40 MG/4 ML VIAL IV SCH (09:41)
[2021-06-30] MEDS: METOPROLOL SUCCINATE XL 25 MG TABLET PO SCH (10:56)
[2021-06-30] MEDS: FUROSEMIDE 40 MG TABLET PO SCH (16:42)
[2021-07-01 08:42] LABS: Basophils % 0.3 % (0.0-0.8); Eosinophils # 0.2 10*3/uL (0.0-0.87); Eosinophils % 2.5 % (0.00-10.9); Hematocrit 40.7 VOL% (42.0-52.0); Hemoglobin 12.8 GM/DL (14.0-18.0); Immature Granulocytes % 0.7 %; Immature Granulocytes Absolute 0.06 #; Lymphocytes # 0.9 10*3/uL (1.4-4.0); Lymphocytes % 9.8 % (21.2-54.2); Mean Corpuscular HGB Conc 31.4 GM/DL (32-36); Mean Corpuscular Volume 81.4 FL (87-102); Mean Platelet Volume 10.9 FL (9.6-12.0); Monocytes % 10.7 % (1.7-12.7); Platelet Count 239 T/CUMM (130-400); White Blood Count 8.8 T/CUMM (4-12)
[2021-07-01 09:02] LABS: Calcium 9.3 MG/DL (8.5-10.1); Osmolality,Calculated 274.7 MOS/KG (273-304); Potassium 5.1 MMOL/L (3.5-5.1)
[2021-07-01] MEDS: FUROSEMIDE 40 MG TABLET PO SCH (10:43)
[2021-07-01] MEDS: ASPIRIN EC 81 MG TABLET PO SCH (10:43)
[2021-07-01] MEDS: METOPROLOL SUCCINATE XL 25 MG TABLET PO SCH (10:43)
[2021-07-01] MEDS: PANTOPRAZOLE 40 MG TABLET PO SCH (10:43)
[2021-07-01] MEDS: ASCORBIC ACID 500 MG TABLET PO SCH (10:43)
[2021-07-01] MEDS: DIGOXIN 0.125 MG TABLET PO SCH (10:43)
[2021-07-01] MEDS: APIXABAN 2.5 MG TABLET PO SCH (10:43)
[2021-07-01] MEDS: TAMSULOSIN 0.4 MG CAPSULE PO SCH (10:43)
[2021-07-01] MEDS: POTASSIUM CHLORIDE 20 MEQ TABLET PO SCH (10:44)
[2021-07-01] MEDS: DOBUTamine 500 MG/250 ML PREMIX IV SCH ×2 (11:13→11:34)
[2021-07-01 12:19] VITALS: BP 95/73
[2021-07-01] MEDS ORDERED: ONDANSETRON 4 MG TABLET PO ONE (13:41)
== END 2021-07-01 14:27 | disposition home health service (06) | DRG 291 ==
LOC: N.ED 12:15 → N.TELES 15:25
PROVIDERS: ADMIT Internal Medicine; ATTEND Internal Medicine

== ENCOUNTER 2021-08-11 17:30 | Inpatient (IN) ==
[2021-08-11] MEDS ORDERED: SODIUM CHLORIDE 0.9% 1,000 ML IV STA (18:10)
[2021-08-11 18:57] LABS: Basophils % 0.2 % (0.0-0.8); Eosinophils # 0.1 10*3/uL (0.0-0.87); Hematocrit 46.5 VOL% (42.0-52.0); Hemoglobin 14.9 GM/DL (14.0-18.0); Immature Granulocytes % 0.4 %; Immature Granulocytes Absolute 0.05 #; Lymphocytes # 0.9 10*3/uL (1.4-4.0); Lymphocytes % 7.9 % (21.2-54.2); Mean Corpuscular Volume 77.1 FL (87-102); Mean Platelet Volume 10.8 FL (9.6-12.0); Neutrophils % 83.5 % (38.7-73.9); Platelet Count 347 T/CUMM (130-400); Red Blood Count 6.03 MC/CUMM (3.8-5.5); Red Cell Distribution Width 19.1 % (9.3-17.3); White Blood Count 11.5 T/CUMM (4-12)
[2021-08-11 19:35] LABS: Alanine Aminotransferase 63 U/L (16-61); Albumin 3.1 G/DL (3.4-5.0); Alkaline Phosphatase 94 U/L (45-117); Amylase 133 U/L (25-115); Aspartate Amino Transferase 84 U/L (0-37); Blood Urea Nitrogen 93 MG/DL (7-18); Calcium 10.4 MG/DL (8.5-10.1); Carbon Dioxide 34 MMOL/L (21-32); Estimated Glom Filtration Rate 24 ML/MIN; Glucose 130 MG/DL (74-106); Osmolality,Calculated 288.9 MOS/KG (273-304); Potassium 2.6 MMOL/L (3.5-5.1); Sodium 129 MMOL/L (136-145); Total Protein 9.1 G/DL (6.4-8.2)
[2021-08-11] MEDS ORDERED: POTASSIUM CHLORIDE 20 MEQ TABLET PO STA (19:54)
[2021-08-11 20:05] LABS: INR 1.1; PT Patient Result 12.3 SECS (10.5-12.0); Partial Thromboplastin Time 30.2 SECS (23.8-32.1)
[2021-08-11] MEDS ORDERED: DEXTROSE 50% 25 GM/50 ML VIAL IV PRN (21:25)
[2021-08-11] MEDS ORDERED: guaiFENesin/DM ER 600-30 MG TABLET PO PRN (21:25)
[2021-08-11] MEDS ORDERED: ONDANSETRON 4 MG/2 ML VIAL IV PRN (21:25)
[2021-08-11] MEDS ORDERED: ACETAMINOPHEN 325 MG TABLET PO PRN (21:25)
[2021-08-11] MEDS ORDERED: diphenhydrAMINE CAP 25 MG CAPSULE PO PRN (21:25)
[2021-08-11] MEDS ORDERED: GLUCAGON 1 MG VIAL IM PRN ×2 (21:25)
[2021-08-11] MEDS ORDERED: DEXTROSE 10% 250 ML BAG IV PRN (21:25)
[2021-08-11] MEDS ORDERED: NICOTINE 21 MG/24 HR PATCH TRANSDERM PRN (21:25)
[2021-08-11] MEDS ORDERED: DOCUSATE SODIUM 100 MG CAPSULE PO PRN (21:25)
[2021-08-11] MEDS ORDERED: ZALEPLON 5 MG CAPSULE PO PRN (21:25)
[2021-08-11] MEDS ORDERED: hydrALAZINE 20 MG/1 ML VIAL IV PRN (21:25)
[2021-08-11] MEDS ORDERED: SODIUM CHLORIDE 0.9% 1,000 ML IV SCH (21:30)
[2021-08-11 21:52] LABS: Bacteria,Urine Many /HPF (Few); Bilirubin,Urine Negative (Negative); Blood, Urine Large mg/dL (Negative); Glucose,Urine (UA) Negative (Negative); Hyaline Casts,Urine 5 /LPF (0-3); Ketones,Urine Negative (Negative); Mucus,Urine Occasional /LPF (Occasional); Nitrite,Urine Negative (Negative); Protein,Urine Negative; Squamous Epithelial Cell,Urine Occasional /HPF (0-10); Urine Appearance CLOUDY (Clear); Urine Color Amber (Yellow); Urine Specific Gravity 1.008 (1.001-1.035); Urine Urobilinogen < 2.0 EU/DL (<2.0)
[2021-08-12] MEDS: HEPARIN 5,000 UNIT/1 ML VIAL SUBCUT SCH ×3 (00:20→21:20)
[2021-08-12] MEDS ORDERED: cefTRIAXone 1,000 MG in SODIUM CHLORIDE 0.9% 100 ML IV SCH (01:00)
[2021-08-12 01:05] LABS: Basophils % 0.1 % (0.0-0.8); Eosinophils # 0.1 10*3/uL (0.0-0.87); Eosinophils % 1.1 % (0.00-10.9); Hematocrit 41.6 VOL% (42.0-52.0); Hemoglobin 13.6 GM/DL (14.0-18.0); Immature Granulocytes % 0.6 %; Immature Granulocytes Absolute 0.07 #; Lymphocytes # 1.2 10*3/uL (1.4-4.0); Mean Corpuscular HGB Conc 32.7 GM/DL (32-36); Mean Corpuscular Volume 77.3 FL (87-102); Mean Platelet Volume 9.7 FL (9.6-12.0); Neutrophils % 77.2 % (38.7-73.9); Platelet Count 251 T/CUMM (130-400); Red Blood Count 5.38 MC/CUMM (3.8-5.5); Red Cell Distribution Width 18.6 % (9.3-17.3); White Blood Count 11.5 T/CUMM (4-12)
[2021-08-12 03:19] LABS: Albumin 2.3 G/DL (3.4-5.0); Bilirubin,Total 1.9 MG/DL (0.20-1.00); Calcium 9.2 MG/DL (8.5-10.1); Osmolality,Calculated 290.7 MOS/KG (273-304); Potassium 2.7 MMOL/L (3.5-5.1); Risk Ratio 2.46; VLDL Cholesterol 18.4 MG/DL
[2021-08-12] MEDS: SODIUM CHLOR 0.9% KCL 40 MEQ 40 MEQ/1,000 ML BAG IV SCH ×2 (03:43→20:55)
[2021-08-12] MEDS: INSULIN LISPRO 100 UNIT/ML SUBCUT SCH ×4 (09:36→21:05)
[2021-08-12] MEDS: METOPROLOL SUCCINATE XL 25 MG TABLET PO SCH (09:48)
[2021-08-12] MEDS: PANTOPRAZOLE 40 MG TABLET PO SCH (09:48)
[2021-08-12] MEDS: POTASSIUM CHLORIDE 20 MEQ TABLET PO SCH ×2 (09:49→20:56)
[2021-08-12] MEDS ORDERED: AMIODARONE 200 MG TABLET PO SCH (10:00)
[2021-08-12] MEDS: TAMSULOSIN 0.4 MG CAPSULE PO SCH (20:56)
[2021-08-12] MEDS: ASCORBIC ACID 500 MG TABLET PO SCH (20:56)
[2021-08-13 04:40] LABS: Basophils % 0.4 % (0.0-0.8); Eosinophils # 0.3 10*3/uL (0.0-0.87); Eosinophils % 3.4 % (0.00-10.9); Hematocrit 39.8 VOL% (42.0-52.0); Hemoglobin 12.6 GM/DL (14.0-18.0); Immature Granulocytes % 0.6 %; Immature Granulocytes Absolute 0.05 #; Lymphocytes # 1.2 10*3/uL (1.4-4.0); Lymphocytes % 15.6 % (21.2-54.2); Mean Corpuscular HGB Conc 31.7 GM/DL (32-36); Mean Platelet Volume 10.6 FL (9.6-12.0); Monocytes % 12.8 % (1.7-12.7); Neutrophils % 67.2 % (38.7-73.9); Platelet Count 246 T/CUMM (130-400); Red Blood Count 5.04 MC/CUMM (3.8-5.5); Red Cell Distribution Width 19.3 % (9.3-17.3); White Blood Count 7.9 T/CUMM (4-12)
[2021-08-13 05:04] LABS: Calcium 9.1 MG/DL (8.5-10.1); Osmolality,Calculated 286.2 MOS/KG (273-304); Potassium 4.4 MMOL/L (3.5-5.1)
[2021-08-13] MEDS: POTASSIUM CHLORIDE 20 MEQ TABLET PO SCH ×2 (09:02→20:27)
[2021-08-13] MEDS: ASPIRIN EC 81 MG TABLET PO SCH (09:02)
[2021-08-13] MEDS: ASCORBIC ACID 500 MG TABLET PO SCH ×2 (09:02→20:28)
[2021-08-13] MEDS: TAMSULOSIN 0.4 MG CAPSULE PO SCH ×2 (09:02→20:27)
[2021-08-13] MEDS: INSULIN LISPRO 100 UNIT/ML SUBCUT SCH ×4 (09:02→21:46)
[2021-08-13] MEDS: HEPARIN 5,000 UNIT/1 ML VIAL SUBCUT SCH ×2 (09:02→20:30)
[2021-08-13] MEDS: METOPROLOL SUCCINATE XL 25 MG TABLET PO SCH (09:02)
[2021-08-13] MEDS: PANTOPRAZOLE 40 MG TABLET PO SCH (09:02)
[2021-08-13] MEDS: SODIUM CHLOR 0.9% KCL 40 MEQ 40 MEQ/1,000 ML BAG IV SCH (09:53)
[2021-08-13] MEDS: OSELTAMIVIR 30 MG CAPSULE PO SCH ×3 (11:35→20:28)
[2021-08-13] MEDS ORDERED: SODIUM CHLORIDE 0.9% 500 ML IV ONE (12:09)
[2021-08-13 17:19] LABS: Amorphous Crystals,Urine Occasional /HPF (Few); Bilirubin,Urine Negative (Negative); Blood, Urine Negative (Negative); Glucose,Urine (UA) Negative (Negative); Ketones,Urine Negative (Negative); Nitrite,Urine Negative (Negative); Protein,Urine Negative; Squamous Epithelial Cell,Urine Occasional /HPF (0-10); Urine Appearance Slightly Hazy (Clear); Urine Color Amber (Yellow); Urine Specific Gravity 1.013 (1.001-1.035)
[2021-08-13] MEDS: MEGESTROL 40 MG TABLET PO SCH (20:28)
[2021-08-14] MEDS: SODIUM CHLOR 0.9% KCL 40 MEQ 40 MEQ/1,000 ML BAG IV SCH (00:38)
[2021-08-14 07:35] LABS: Basophils % 0.5 % (0.0-0.8); Eosinophils # 0.1 10*3/uL (0.0-0.87); Eosinophils % 1.5 % (0.00-10.9); Hematocrit 42.2 VOL% (42.0-52.0); Hemoglobin 13.2 GM/DL (14.0-18.0); Immature Granulocytes % 0.9 %; Immature Granulocytes Absolute 0.07 #; Lymphocytes # 1.1 10*3/uL (1.4-4.0); Mean Corpuscular HGB Conc 31.3 GM/DL (32-36); Mean Corpuscular Volume 80.2 FL (87-102); Monocytes % 12.3 % (1.7-12.7); Neutrophils % 70.8 % (38.7-73.9); Platelet Count 253 T/CUMM (130-400); Red Blood Count 5.26 MC/CUMM (3.8-5.5); Red Cell Distribution Width 20.3 % (9.3-17.3); White Blood Count 8.1 T/CUMM (4-12)
[2021-08-14] MEDS ORDERED: DIGOXIN 0.5 MG/2 ML AMP IV ONE (07:55)
[2021-08-14] MEDS: PANTOPRAZOLE 40 MG TABLET PO SCH (09:29)
[2021-08-14] MEDS: INSULIN LISPRO 100 UNIT/ML SUBCUT SCH ×4 (09:30→21:25)
[2021-08-14] MEDS: ASCORBIC ACID 500 MG TABLET PO SCH ×2 (09:48→21:25)
[2021-08-14] MEDS: ASPIRIN EC 81 MG TABLET PO SCH (09:48)
[2021-08-14] MEDS: OSELTAMIVIR 30 MG CAPSULE PO SCH ×2 (09:48→21:25)
[2021-08-14] MEDS: METOPROLOL SUCCINATE XL 25 MG TABLET PO SCH (09:48)
[2021-08-14] MEDS: TAMSULOSIN 0.4 MG CAPSULE PO SCH ×2 (09:48→21:25)
[2021-08-14] MEDS: MEGESTROL 40 MG TABLET PO SCH ×2 (09:48→21:25)
[2021-08-14] MEDS: POTASSIUM CHLORIDE 20 MEQ TABLET PO SCH (09:49)
[2021-08-14] MEDS: PANTOPRAZOLE 40 MG VIAL IV SCH ×2 (09:58→21:24)
[2021-08-14 12:00] LABS: Calcium 9.2 MG/DL (8.5-10.1); Osmolality,Calculated 294.8 MOS/KG (273-304)
[2021-08-14] MEDS: INSULIN REGULAR 10 UNIT, CALCIUM GLUCONATE 1,000 MG in DEXTROSE 10% 250 ML IV ONE ×2 (13:16→18:26)
[2021-08-14] MEDS ORDERED: SODIUM ZIRCONIUM CYCLOSILICATE 10 GM PACK PO ONE (16:01)
[2021-08-15 06:53] LABS: Basophils % 0.4 % (0.0-0.8); Eosinophils # 0.2 10*3/uL (0.0-0.87); Eosinophils % 2.3 % (0.00-10.9); Hemoglobin 10.9 GM/DL (14.0-18.0); Immature Granulocytes % 1.2 %; Immature Granulocytes Absolute 0.12 #; Lymphocytes # 1.7 10*3/uL (1.4-4.0); Lymphocytes % 16.5 % (21.2-54.2); Mean Corpuscular HGB Conc 32.1 GM/DL (32-36); Mean Corpuscular Volume 79.8 FL (87-102); Mean Platelet Volume 11.5 FL (9.6-12.0); NRBC # 0.04 10*3/uL; Neutrophils % 69.6 % (38.7-73.9); Platelet Count 208 T/CUMM (130-400); Red Blood Count 4.26 MC/CUMM (3.8-5.5); Red Cell Distribution Width 20.3 % (9.3-17.3); White Blood Count 10.3 T/CUMM (4-12)
[2021-08-15] MEDS: INSULIN LISPRO 100 UNIT/ML SUBCUT SCH ×4 (07:55→22:04)
[2021-08-15 08:59] LABS: Calcium 8.9 MG/DL (8.5-10.1); Osmolality,Calculated 295.5 MOS/KG (273-304)
[2021-08-15] MEDS: ASPIRIN EC 81 MG TABLET PO SCH (09:37)
[2021-08-15] MEDS: OSELTAMIVIR 30 MG CAPSULE PO SCH ×2 (09:37→22:03)
[2021-08-15] MEDS: METOPROLOL SUCCINATE XL 25 MG TABLET PO SCH (09:37)
[2021-08-15] MEDS: TAMSULOSIN 0.4 MG CAPSULE PO SCH ×2 (09:37→22:03)
[2021-08-15] MEDS: ASCORBIC ACID 500 MG TABLET PO SCH ×2 (09:37→22:03)
[2021-08-15 09:41] LABS: Calcium 9.5 MG/DL (8.5-10.1); Osmolality,Calculated 294.5 MOS/KG (273-304); Potassium 5.1 MMOL/L (3.5-5.1)
[2021-08-15] MEDS: MEGESTROL 40 MG TABLET PO SCH ×2 (09:46→22:03)
[2021-08-15] MEDS: PANTOPRAZOLE 40 MG VIAL IV SCH ×2 (09:46→22:04)
[2021-08-16 06:53] LABS: Basophils % 0.4 % (0.0-0.8); Eosinophils # 0.4 10*3/uL (0.0-0.87); Eosinophils % 3.9 % (0.00-10.9); Hematocrit 38.2 VOL% (42.0-52.0); Hemoglobin 11.9 GM/DL (14.0-18.0); Immature Granulocytes % 0.9 %; Immature Granulocytes Absolute 0.08 #; Lymphocytes # 1.1 10*3/uL (1.4-4.0); Lymphocytes % 12.2 % (21.2-54.2); Mean Corpuscular HGB Conc 31.2 GM/DL (32-36); Mean Corpuscular Volume 82.5 FL (87-102); Mean Platelet Volume 11.1 FL (9.6-12.0); Monocytes % 8.5 % (1.7-12.7); NRBC # 0.02 10*3/uL; Neutrophils % 74.1 % (38.7-73.9); Platelet Count 208 T/CUMM (130-400); Red Blood Count 4.63 MC/CUMM (3.8-5.5); Red Cell Distribution Width 20.9 % (9.3-17.3); White Blood Count 9.2 T/CUMM (4-12)
[2021-08-16 07:12] LABS: Osmolality,Calculated 283.2 MOS/KG (273-304); Potassium 4.2 MMOL/L (3.5-5.1)
[2021-08-16] MEDS ORDERED: MAGNESIUM SULF RIDER 4 GM/100 ML PREMIX IV PRN (07:23)
[2021-08-16] MEDS ORDERED: MAGNESIUM SULF RIDER 2 GM/50 ML PREMIX IV PRN (07:23)
[2021-08-16] MEDS: INSULIN LISPRO 100 UNIT/ML SUBCUT SCH ×4 (08:11→21:56)
[2021-08-16] MEDS: PANTOPRAZOLE 40 MG VIAL IV SCH ×2 (08:17→21:55)
[2021-08-16] MEDS: TAMSULOSIN 0.4 MG CAPSULE PO SCH ×2 (08:19→21:55)
[2021-08-16] MEDS: ASPIRIN EC 81 MG TABLET PO SCH (08:19)
[2021-08-16] MEDS: ASCORBIC ACID 500 MG TABLET PO SCH ×2 (08:19→21:55)
[2021-08-16] MEDS: OSELTAMIVIR 30 MG CAPSULE PO SCH ×2 (08:19→21:55)
[2021-08-16] MEDS: METOPROLOL SUCCINATE XL 25 MG TABLET PO SCH (08:19)
[2021-08-16] MEDS: MEGESTROL 40 MG TABLET PO SCH ×2 (08:19→21:58)
[2021-08-17 06:14] LABS: Calcium 8.9 MG/DL (8.5-10.1); Osmolality,Calculated 268.9 MOS/KG (273-304); Potassium 4.7 MMOL/L (3.5-5.1)
[2021-08-17] MEDS: INSULIN LISPRO 100 UNIT/ML SUBCUT SCH ×5 (06:27→22:33)
[2021-08-17 07:55] LABS: Basophils % 0.3 % (0.0-0.8); Eosinophils # 0.1 10*3/uL (0.0-0.87); Hematocrit 38.9 VOL% (42.0-52.0); Hemoglobin 12.4 GM/DL (14.0-18.0); Immature Granulocytes % 0.9 %; Immature Granulocytes Absolute 0.09 #; Lymphocytes # 0.9 10*3/uL (1.4-4.0); Lymphocytes % 8.7 % (21.2-54.2); Mean Corpuscular HGB Conc 31.9 GM/DL (32-36); Mean Corpuscular Volume 80.4 FL (87-102); Mean Platelet Volume 10.9 FL (9.6-12.0); Monocytes % 7.7 % (1.7-12.7); Neutrophils % 81.4 % (38.7-73.9); Platelet Count 220 T/CUMM (130-400); Red Blood Count 4.84 MC/CUMM (3.8-5.5); White Blood Count 10.5 T/CUMM (4-12)
[2021-08-17] MEDS: cefTRIAXone 1,000 MG in SODIUM CHLORIDE 0.9% 100 ML IV SCH (10:08)
[2021-08-17] MEDS: ASPIRIN EC 81 MG TABLET PO SCH (10:09)
[2021-08-17] MEDS: METOPROLOL SUCCINATE XL 25 MG TABLET PO SCH (10:09)
[2021-08-17] MEDS: PANTOPRAZOLE 40 MG VIAL IV SCH ×2 (10:09→21:57)
[2021-08-17] MEDS: OSELTAMIVIR 30 MG CAPSULE PO SCH ×2 (10:10→21:57)
[2021-08-17] MEDS: TAMSULOSIN 0.4 MG CAPSULE PO SCH ×2 (10:10→21:57)
[2021-08-17] MEDS: ASCORBIC ACID 500 MG TABLET PO SCH ×2 (10:10→21:57)
[2021-08-17] MEDS: MEGESTROL 40 MG TABLET PO SCH ×2 (10:10→21:57)
[2021-08-17] MEDS: DEXTROSE 5% NACL 0.9% 1,000 ML IV SCH (11:40)
[2021-08-18] MEDS: DEXTROSE 5% NACL 0.9% 1,000 ML IV SCH (07:05)
[2021-08-18] MEDS: INSULIN LISPRO 100 UNIT/ML SUBCUT SCH ×4 (09:45→22:07)
[2021-08-18] MEDS: PANTOPRAZOLE 40 MG VIAL IV SCH ×2 (09:50→22:00)
[2021-08-18] MEDS: cefTRIAXone 1,000 MG in SODIUM CHLORIDE 0.9% 100 ML IV SCH (09:51)
[2021-08-18] MEDS: METOPROLOL SUCCINATE XL 25 MG TABLET PO SCH (09:51)
[2021-08-18] MEDS: ASPIRIN EC 81 MG TABLET PO SCH (13:28)
[2021-08-18] MEDS: TAMSULOSIN 0.4 MG CAPSULE PO SCH ×2 (13:28→22:06)
[2021-08-18] MEDS: MEGESTROL 40 MG TABLET PO SCH ×2 (13:29→22:06)
[2021-08-18] MEDS: ASCORBIC ACID 500 MG TABLET PO SCH ×2 (13:29→22:06)
[2021-08-18] MEDS: ATORVASTATIN 20 MG TABLET PO SCH (22:06)
[2021-08-19] MEDS: DEXTROSE 5% NACL 0.9% 1,000 ML IV SCH (06:07)
[2021-08-19] MEDS: ASCORBIC ACID 500 MG TABLET PO SCH ×2 (08:26→21:00)
[2021-08-19] MEDS: METOPROLOL SUCCINATE XL 25 MG TABLET PO SCH (08:26)
[2021-08-19] MEDS: ASPIRIN EC 81 MG TABLET PO SCH (08:26)
[2021-08-19] MEDS: MEGESTROL 40 MG TABLET PO SCH ×2 (08:26→21:00)
[2021-08-19] MEDS: cefTRIAXone 1,000 MG in SODIUM CHLORIDE 0.9% 100 ML IV SCH (08:26)
[2021-08-19] MEDS: TAMSULOSIN 0.4 MG CAPSULE PO SCH ×2 (08:26→21:00)
[2021-08-19] MEDS: PANTOPRAZOLE 40 MG VIAL IV SCH ×2 (08:32→21:07)
[2021-08-19] MEDS: INSULIN LISPRO 100 UNIT/ML SUBCUT SCH ×4 (08:37→21:00)
[2021-08-19 08:39] LABS: Calcium 8.7 MG/DL (8.5-10.1); Osmolality,Calculated 284.2 MOS/KG (273-304); Potassium 4.8 MMOL/L (3.5-5.1)
[2021-08-19] MEDS ORDERED: TUBERCULIN SKIN TEST 0.1 ML SYRINGE INTRADERM ONE (13:29)
[2021-08-19] MEDS: ATORVASTATIN 20 MG TABLET PO SCH (21:00)
[2021-08-20] MEDS: INSULIN LISPRO 100 UNIT/ML SUBCUT SCH ×4 (08:14→21:25)
[2021-08-20] MEDS: ASPIRIN EC 81 MG TABLET PO SCH (09:13)
[2021-08-20] MEDS: PANTOPRAZOLE 40 MG VIAL IV SCH ×2 (09:13→21:15)
[2021-08-20] MEDS: ASCORBIC ACID 500 MG TABLET PO SCH ×2 (09:13→21:15)
[2021-08-20] MEDS: TAMSULOSIN 0.4 MG CAPSULE PO SCH (09:13)
[2021-08-20] MEDS: cefTRIAXone 1,000 MG in SODIUM CHLORIDE 0.9% 100 ML IV SCH (09:13)
[2021-08-20] MEDS: MEGESTROL 40 MG TABLET PO SCH (09:13)
[2021-08-20] MEDS: DEXTROSE 5% NACL 0.9% 1,000 ML IV SCH ×2 (09:58→15:29)
[2021-08-20] MEDS: METOPROLOL SUCCINATE XL 25 MG TABLET PO SCH (09:58)
[2021-08-20] MEDS: ATORVASTATIN 20 MG TABLET PO SCH (21:15)
[2021-08-21] MEDS: DEXTROSE 5% NACL 0.9% 1,000 ML IV SCH ×2 (01:29→16:22)
[2021-08-21] MEDS ORDERED: TAMSULOSIN 0.4 MG CAPSULE PO SCH (09:00)
[2021-08-21] MEDS: cefTRIAXone 1,000 MG in SODIUM CHLORIDE 0.9% 100 ML IV SCH (10:13)
[2021-08-21] MEDS: ASCORBIC ACID 500 MG TABLET PO SCH (10:16)
[2021-08-21] MEDS: ASPIRIN EC 81 MG TABLET PO SCH (10:16)
[2021-08-21] MEDS: INSULIN LISPRO 100 UNIT/ML SUBCUT SCH ×3 (10:19→16:22)
[2021-08-21] MEDS: PANTOPRAZOLE 40 MG VIAL IV SCH (10:20)
[2021-08-21 16:24] VITALS: BP 95/73
== END 2021-08-21 16:04 | disposition swing bed (61) | DRG 690 ==
LOC: N.ED 17:30 → N.TELES 21:25 → SUATTDRO 21:25 → N.TELES 08-12 00:53
PROVIDERS: ADMIT Internal Medicine Geriatric Medicine; ATTEND Emergency Medicine

== ENCOUNTER 2021-08-25 09:50 | Inpatient (IN) ==
[2021-08-25 10:15] LABS: Basophils % 0.1 % (0.0-0.8); Hematocrit 36.6 VOL% (42.0-52.0); Hemoglobin 11.6 GM/DL (14.0-18.0); Immature Granulocytes % 0.9 %; Immature Granulocytes Absolute 0.11 #; Lymphocytes # 0.7 10*3/uL (1.4-4.0); Lymphocytes % 5.8 % (21.2-54.2); Mean Corpuscular HGB Conc 31.7 GM/DL (32-36); Mean Corpuscular Volume 80.3 FL (87-102); Monocytes % 7.1 % (1.7-12.7); NRBC # 0.14 10*3/uL; Neutrophils % 86.1 % (38.7-73.9); Platelet Count 236 T/CUMM (130-400); Red Blood Count 4.56 MC/CUMM (3.8-5.5); Red Cell Distribution Width 23.5 % (9.3-17.3); White Blood Count 12.9 T/CUMM (4-12)
[2021-08-25 11:07] LABS: Albumin 1.9 G/DL (3.4-5.0); Bilirubin,Total 5.3 MG/DL (0.20-1.00); Osmolality,Calculated 304.1 MOS/KG (273-304); Potassium 5.7 MMOL/L (3.5-5.1)
[2021-08-25] MEDS ORDERED: SODIUM CHLORIDE 0.9% 2,450 ML IV ONE (11:12)
[2021-08-25] MEDS ORDERED: SODIUM CHLORIDE 0.9% 1,000 ML IV STA (11:14)
[2021-08-25] MEDS ORDERED: LEVOFLOXACIN INJ 750 MG/150 ML PREMIX IV ONE (11:30)
[2021-08-25] MEDS ORDERED: ACETAMINOPHEN 325 MG TABLET PO ONE (11:30)
[2021-08-25] MEDS ORDERED: PIPERACILLIN/TAZOBACTAM 3,375 MG in SODIUM CHLORIDE 0.9% 100 ML IV ONE (12:00)
[2021-08-25 12:20] LABS: Amorphous Crystals,Urine Occasional /HPF (Few); Bacteria,Urine Occasional /HPF (Few); Bilirubin,Urine Negative (Negative); Blood, Urine Negative (Negative); Glucose,Urine (UA) >=500 mg/dL (Negative); Hyaline Casts,Urine 3 /LPF (0-3); Ketones,Urine 5 mg/dL (Negative); Mucus,Urine Occasional /LPF (Occasional); Nitrite,Urine Negative (Negative); Protein,Urine 30 MG/DL; RBC,Urine 2 /HPF (0-4); Urine Appearance CLEAR (Clear); Urine Color Amber (Yellow); Urine Specific Gravity 1.015 (1.001-1.035)
[2021-08-25 12:51] LABS: ABG Base Excess -9.8 MMOL/L (-2.5-2.5); ABG HCO3 12.2 MMOL/L (20-26); ABG Oxygen Saturation 98.7 % (95-100); ABG PH 7.445 (7.35-7.45); ABG PO2 139.4 MM HG (80-95); ABG TCO2 12.7 MMOL/L (23-27)
[2021-08-25 12:54] LABS: ABG PCO2 18.1 MM HG (35-48)
[2021-08-25] MEDS ORDERED: ONDANSETRON 4 MG/2 ML VIAL IV PRN (13:41)
[2021-08-25] MEDS ORDERED: ALBUTEROL 2.5 MG/3 ML NEB RESP TX PRN (13:41)
[2021-08-25] MEDS: ENOXAPARIN 30 MG/0.3 ML SYRINGE SUBCUT SCH (14:00)
[2021-08-25] MEDS: PANTOPRAZOLE 40 MG TABLET PO SCH (14:00)
[2021-08-25] MEDS: SODIUM CHLORIDE 0.9% 1,000 ML IV SCH (14:41)
[2021-08-25] MEDS ORDERED: DEXTROSE 10% 250 ML BAG IV PRN (15:16)
[2021-08-25] MEDS ORDERED: GLUCAGON 1 MG VIAL IM PRN (15:16)
[2021-08-25] MEDS ORDERED: NOREPINEPHRINE 16 MG in SODIUM CHLORIDE 0.9% 234 ML IV PRN (21:15)
[2021-08-25] MEDS ORDERED: MIDAZOLAM 100 MG in SODIUM CHLORIDE 0.9% 80 ML IV PRN (21:15)
[2021-08-26] MEDS: PIPERACILLIN/TAZOBACTAM 3,375 MG in SODIUM CHLORIDE 0.9% 100 ML IV SCH ×2 (00:35→11:21)
[2021-08-26] MEDS: MORPHINE 4 MG/1 ML VIAL IV PRN (04:08)
[2021-08-26] MEDS: SODIUM CHLORIDE 0.9% 1,000 ML IV SCH (04:08)
[2021-08-26 04:42] LABS: ABG Base Excess -12.5 MMOL/L (-2.5-2.5); ABG HCO3 9.7 MMOL/L (20-26); ABG Oxygen Saturation 98.9 % (95-100); ABG PH 7.402 (7.35-7.45); ABG PO2 146.2 MM HG (80-95); ABG TCO2 10.2 MMOL/L (23-27)
[2021-08-26 04:44] LABS: ABG PCO2 15.9 MM HG (35-48)
[2021-08-26] MEDS ORDERED: SODIUM BICARBONATE 50 MEQ/50 ML VIAL IV STA (05:02)
[2021-08-26] MEDS ORDERED: SODIUM BICARBONATE 50 MEQ/50 ML VIAL IV ONE ×2 (05:05)
[2021-08-26 05:26] LABS: Basophils % 0.1 % (0.0-0.8); Eosinophils % 0.1 % (0.00-10.9); Hematocrit 33.6 VOL% (42.0-52.0); Hemoglobin 11.2 GM/DL (14.0-18.0); Immature Granulocytes % 0.8 %; Immature Granulocytes Absolute 0.11 #; Lymphocytes # 0.7 10*3/uL (1.4-4.0); Lymphocytes % 5.4 % (21.2-54.2); Mean Corpuscular HGB Conc 33.3 GM/DL (32-36); Mean Corpuscular Volume 77.1 FL (87-102); Mean Platelet Volume 10.8 FL (9.6-12.0); Monocytes % 6.7 % (1.7-12.7); NRBC # 0.27 10*3/uL; Neutrophils % 86.9 % (38.7-73.9); Platelet Count 195 T/CUMM (130-400); Red Blood Count 4.36 MC/CUMM (3.8-5.5); Red Cell Distribution Width 22.6 % (9.3-17.3); White Blood Count 13.2 T/CUMM (4-12)
[2021-08-26] MEDS ORDERED: ALBUMIN 25% 25 GM/100 ML VIAL IV ONE (05:27)
[2021-08-26] MEDS ORDERED: SODIUM CHLORIDE 0.9% 500 ML IV ONE (05:27)
[2021-08-26 05:53] LABS: Calcium 7.5 MG/DL (8.5-10.1); Osmolality,Calculated 307.5 MOS/KG (273-304); Potassium 5.5 MMOL/L (3.5-5.1)
[2021-08-26 05:54] LABS: Acanthocytes Few; Anisocytosis 1+; Burr Cells 1+; Hypochromia 1+; Microcytosis 1+; Target Cells Few
[2021-08-26 05:55] LABS: Polychromasia Slight
[2021-08-26 05:57] LABS: Albumin 1.6 G/DL (3.4-5.0); Bilirubin,Total 4.8 MG/DL (0.20-1.00); Calcium 7.8 MG/DL (8.5-10.1); Osmolality,Calculated 309.4 MOS/KG (273-304); Potassium 5.3 MMOL/L (3.5-5.1)
[2021-08-26] MEDS: SODIUM BICARB INJ 100 MEQ in DEXTROSE 5% NACL 0.45% 1,000 ML IV SCH ×2 (06:48→16:44)
[2021-08-26] MEDS: PANTOPRAZOLE 40 MG TABLET PO SCH (08:17)
[2021-08-26] MEDS: ALBUMIN 25% 12.5 GM/50 ML VIAL IV SCH ×2 (08:36→16:41)
[2021-08-26] MEDS: DOBUTamine 500 MG/250 ML PREMIX IV PRN (08:37)
[2021-08-26] MEDS: FUROSEMIDE INJ 100 MG in SODIUM CHLORIDE 0.9% 90 ML IV SCH ×2 (09:12→19:00)
[2021-08-26] MEDS: ENOXAPARIN 30 MG/0.3 ML SYRINGE SUBCUT SCH (13:15)
[2021-08-26] MEDS ORDERED: GLUCAGON 1 MG VIAL IM PRN (19:39)
[2021-08-26] MEDS ORDERED: DEXTROSE 50% 25 GM/50 ML VIAL IV PRN (19:39)
[2021-08-26] MEDS: APIXABAN 2.5 MG TABLET PO SCH (21:06)
[2021-08-26] MEDS: INSULIN REGULAR 100 UNIT/ML SUBCUT SCH (21:06)
[2021-08-26] MEDS: ASCORBIC ACID 500 MG TABLET PO SCH (21:06)
[2021-08-27] MEDS: PIPERACILLIN/TAZOBACTAM 3,375 MG in SODIUM CHLORIDE 0.9% 100 ML IV SCH (00:02)
[2021-08-27] MEDS: ALBUMIN 25% 12.5 GM/50 ML VIAL IV SCH ×2 (00:02→08:11)
[2021-08-27] MEDS: DOBUTamine 500 MG/250 ML PREMIX IV PRN ×2 (02:02→18:01)
[2021-08-27 02:35] LABS: Basophils % 0.1 % (0.0-0.8); Eosinophils % 0.1 % (0.00-10.9); Hemoglobin 9.9 GM/DL (14.0-18.0); Immature Granulocytes % 0.9 %; Lymphocytes # 0.5 10*3/uL (1.4-4.0); Lymphocytes % 3.9 % (21.2-54.2); Mean Corpuscular HGB Conc 31.9 GM/DL (32-36); Mean Corpuscular Volume 79.1 FL (87-102); Monocytes % 5.6 % (1.7-12.7); NRBC # 0.14 10*3/uL; Neutrophils % 89.4 % (38.7-73.9); Platelet Count 151 T/CUMM (130-400); Red Blood Count 3.92 MC/CUMM (3.8-5.5); Red Cell Distribution Width 23.2 % (9.3-17.3); White Blood Count 11.7 T/CUMM (4-12)
[2021-08-27 02:43] LABS: Albumin 2.2 G/DL (3.4-5.0); Bilirubin,Total 4.9 MG/DL (0.20-1.00); Calcium 7.5 MG/DL (8.5-10.1); Osmolality,Calculated 305.5 MOS/KG (273-304); Potassium 3.7 MMOL/L (3.5-5.1); Total Protein 6.1 G/DL (6.4-8.2)
[2021-08-27 03:09] LABS: Acanthocytes 1+; Lymphocytes 6 % (20-55); Nucleated Red Blood Cells 1 (0-5); Platelet Estimate Adequate; Segmented Neutrophils 91 % (50-85); Target Cells 1+; Total Cells Counted 100
[2021-08-27 03:10] LABS: Poikilocytosis 1+; Polychromasia 1+
[2021-08-27] MEDS: SODIUM BICARB INJ 100 MEQ in DEXTROSE 5% NACL 0.45% 1,000 ML IV SCH ×2 (03:13→06:31)
[2021-08-27] MEDS: FUROSEMIDE INJ 100 MG in SODIUM CHLORIDE 0.9% 90 ML IV SCH ×5 (03:14→21:02)
[2021-08-27 03:38] LABS: ABG Oxygen Saturation 98.4 % (95-100); ABG PCO2 25.6 MM HG (35-48); ABG PO2 119.8 MM HG (80-95); ABG TCO2 20.8 MMOL/L (23-27)
[2021-08-27] MEDS: APIXABAN 2.5 MG TABLET PO SCH ×2 (08:09→20:59)
[2021-08-27] MEDS: ASPIRIN EC 81 MG TABLET PO SCH (08:09)
[2021-08-27] MEDS: ASCORBIC ACID 500 MG TABLET PO SCH ×2 (08:09→21:00)
[2021-08-27] MEDS: PANTOPRAZOLE 40 MG TABLET PO SCH (08:09)
[2021-08-27] MEDS: TAMSULOSIN 0.4 MG CAPSULE PO SCH (08:09)
[2021-08-27] MEDS: INSULIN REGULAR 100 UNIT/ML SUBCUT SCH ×4 (08:10→21:00)
[2021-08-27] MEDS: MEROPENEM 500 MG in SODIUM CHLORIDE 0.9% 100 ML IV SCH ×2 (08:11→20:25)
[2021-08-27] MEDS ORDERED: ASPIRIN EC 81 MG TABLET PO SCH (09:00)
[2021-08-27] MEDS: LEVOFLOXACIN INJ 500 MG/100 ML PREMIX IV SCH (11:15)
[2021-08-28] MEDS: SODIUM BICARB INJ 100 MEQ in DEXTROSE 5% NACL 0.45% 1,000 ML IV SCH (00:31)
[2021-08-28] MEDS: FUROSEMIDE INJ 100 MG in SODIUM CHLORIDE 0.9% 90 ML IV SCH ×5 (01:57→22:11)
[2021-08-28 03:45] LABS: Basophils % 0.1 % (0.0-0.8); Eosinophils % 0.4 % (0.00-10.9); Hematocrit 29.8 VOL% (42.0-52.0); Hemoglobin 9.8 GM/DL (14.0-18.0); Immature Granulocytes % 1.2 %; Immature Granulocytes Absolute 0.13 #; Lymphocytes # 0.3 10*3/uL (1.4-4.0); Lymphocytes % 2.4 % (21.2-54.2); Mean Corpuscular HGB Conc 32.9 GM/DL (32-36); Mean Corpuscular Volume 76.4 FL (87-102); Mean Platelet Volume 10.7 FL (9.6-12.0); Monocytes % 6.2 % (1.7-12.7); NRBC # 0.09 10*3/uL; Neutrophils % 89.7 % (38.7-73.9); Platelet Count 125 T/CUMM (130-400); Red Cell Distribution Width 22.5 % (9.3-17.3); White Blood Count 10.8 T/CUMM (4-12)
[2021-08-28 04:01] LABS: Calcium 7.7 MG/DL (8.5-10.1); Osmolality,Calculated 301.4 MOS/KG (273-304); Potassium 3.2 MMOL/L (3.5-5.1)
[2021-08-28 04:13] LABS: Lymphocytes 4 % (20-55); Segmented Neutrophils 93 % (50-85); Total Cells Counted 100
[2021-08-28 04:14] LABS: Burr Cells Slight; Hypochromia Slight; Ovalocytes Slight
[2021-08-28 04:40] LABS: Albumin 2.2 G/DL (3.4-5.0); Bilirubin,Total 5.2 MG/DL (0.20-1.00); Calcium 7.5 MG/DL (8.5-10.1); Osmolality,Calculated 297.7 MOS/KG (273-304); Potassium 3.9 MMOL/L (3.5-5.1); Total Protein 5.7 G/DL (6.4-8.2)
[2021-08-28] MEDS: PANTOPRAZOLE 40 MG TABLET PO SCH (09:20)
[2021-08-28] MEDS: ASPIRIN EC 81 MG TABLET PO SCH (09:20)
[2021-08-28] MEDS: MEROPENEM 500 MG in SODIUM CHLORIDE 0.9% 100 ML IV SCH ×2 (09:20→20:01)
[2021-08-28] MEDS: TAMSULOSIN 0.4 MG CAPSULE PO SCH (09:20)
[2021-08-28] MEDS: HYDROCORTISONE 100 MG VIAL IV SCH ×2 (09:20→18:08)
[2021-08-28] MEDS: APIXABAN 2.5 MG TABLET PO SCH ×2 (09:20→22:35)
[2021-08-28] MEDS: ASCORBIC ACID 500 MG TABLET PO SCH ×2 (09:20→22:35)
[2021-08-28] MEDS: DOBUTamine 500 MG/250 ML PREMIX IV PRN (10:00)
[2021-08-28] MEDS: INSULIN REGULAR 100 UNIT/ML SUBCUT SCH ×4 (10:53→22:35)
[2021-08-28] MEDS: ALBUMIN 25% 12.5 GM/50 ML VIAL IV SCH ×2 (11:22→18:09)
[2021-08-29] MEDS: DOBUTamine 500 MG/250 ML PREMIX IV PRN (01:41)
[2021-08-29] MEDS: ALBUMIN 25% 12.5 GM/50 ML VIAL IV SCH (01:50)
[2021-08-29] MEDS: HYDROCORTISONE 100 MG VIAL IV SCH ×3 (01:50→18:00)
[2021-08-29] MEDS: SODIUM BICARB INJ 100 MEQ in DEXTROSE 5% NACL 0.45% 1,000 ML IV SCH ×2 (01:54→19:18)
[2021-08-29] MEDS: FUROSEMIDE INJ 100 MG in SODIUM CHLORIDE 0.9% 90 ML IV SCH ×2 (03:15→07:45)
[2021-08-29 03:36] LABS: Basophils % 0.1 % (0.0-0.8); Eosinophils % 0.1 % (0.00-10.9); Hemoglobin 9.9 GM/DL (14.0-18.0); Lymphocytes # 0.4 10*3/uL (1.4-4.0); Mean Corpuscular Volume 76.1 FL (87-102); Mean Platelet Volume 10.8 FL (9.6-12.0); NRBC # 0.09 10*3/uL; Neutrophils % 88.8 % (38.7-73.9); Platelet Count 111 T/CUMM (130-400); Red Blood Count 3.94 MC/CUMM (3.8-5.5); Red Cell Distribution Width 22.5 % (9.3-17.3); White Blood Count 10.2 T/CUMM (4-12)
[2021-08-29 04:24] LABS: Lymphocytes 4 % (20-55); Nucleated Red Blood Cells 2 (0-5); Platelet Estimate Normal; Segmented Neutrophils 93 % (50-85); Total Cells Counted 100
[2021-08-29 04:25] LABS: Hypochromia Slight; Microcytosis 1+
[2021-08-29 04:36] LABS: Albumin 2.6 G/DL (3.4-5.0); Bilirubin,Total 5.7 MG/DL (0.20-1.00); Calcium 8.6 MG/DL (8.5-10.1); Osmolality,Calculated 306.5 MOS/KG (273-304); Potassium 3.3 MMOL/L (3.5-5.1); Total Protein 6.5 G/DL (6.4-8.2)
[2021-08-29 07:43] LABS: Calcium 8.8 MG/DL (8.5-10.1); Potassium 3.3 MMOL/L (3.5-5.1)
[2021-08-29] MEDS ORDERED: FUROSEMIDE INJ 200 MG in SODIUM CHLORIDE 0.9% 50 ML IV ONE (08:15)
[2021-08-29] MEDS: INSULIN REGULAR 100 UNIT/ML SUBCUT SCH ×4 (08:58→22:19)
[2021-08-29] MEDS: PANTOPRAZOLE 40 MG TABLET PO SCH ×2 (11:00→19:25)
[2021-08-29] MEDS: TAMSULOSIN 0.4 MG CAPSULE PO SCH ×2 (11:00→19:24)
[2021-08-29] MEDS: MEROPENEM 500 MG in SODIUM CHLORIDE 0.9% 100 ML IV SCH ×2 (11:00→21:06)
[2021-08-29] MEDS: APIXABAN 2.5 MG TABLET PO SCH ×3 (11:00→21:07)
[2021-08-29] MEDS: ASPIRIN EC 81 MG TABLET PO SCH ×2 (11:00→19:24)
[2021-08-29] MEDS: ASCORBIC ACID 500 MG TABLET PO SCH ×3 (11:01→21:07)
[2021-08-29] MEDS: LEVOFLOXACIN INJ 500 MG/100 ML PREMIX IV SCH (12:01)
[2021-08-29] MEDS ORDERED: POTASSIUM CHLORIDE RIDER 20 MEQ/100 ML PREMIX IV ONE ×2 (20:52→22:30)
[2021-08-30] MEDS: PHENYLEPHRINE DRIP 40 MG/250 ML PREMIX IV PRN ×4 (00:05→21:32)
[2021-08-30] MEDS: SODIUM BICARB INJ 100 MEQ in DEXTROSE 5% NACL 0.45% 1,000 ML IV SCH ×2 (00:20→23:10)
[2021-08-30] MEDS: DOBUTamine 500 MG/250 ML PREMIX IV PRN ×2 (00:21→19:30)
[2021-08-30] MEDS: HYDROCORTISONE 100 MG VIAL IV SCH ×3 (02:02→17:39)
[2021-08-30 04:25] LABS: Basophils % 0.1 % (0.0-0.8); Eosinophils % 0.1 % (0.00-10.9); Hematocrit 31.5 VOL% (42.0-52.0); Hemoglobin 10.6 GM/DL (14.0-18.0); Immature Granulocytes % 1.1 %; Immature Granulocytes Absolute 0.12 #; Lymphocytes # 0.7 10*3/uL (1.4-4.0); Lymphocytes % 6.9 % (21.2-54.2); Mean Corpuscular HGB Conc 33.7 GM/DL (32-36); Mean Corpuscular Volume 74.8 FL (87-102); Monocytes % 7.5 % (1.7-12.7); NRBC # 0.09 10*3/uL; Neutrophils % 84.3 % (38.7-73.9); Platelet Count 112 T/CUMM (130-400); Red Blood Count 4.21 MC/CUMM (3.8-5.5); Red Cell Distribution Width 22.5 % (9.3-17.3); White Blood Count 10.6 T/CUMM (4-12)
[2021-08-30 04:39] LABS: Albumin 2.3 G/DL (3.4-5.0); Bilirubin,Total 6.2 MG/DL (0.20-1.00); Calcium 8.7 MG/DL (8.5-10.1); Osmolality,Calculated 308.5 MOS/KG (273-304); Potassium 4.2 MMOL/L (3.5-5.1); Total Protein 6.3 G/DL (6.4-8.2)
[2021-08-30 04:53] LABS: Anisocytosis 1+; Hypochromia 1+; Microcytosis 1+; Target Cells Few
[2021-08-30 04:54] LABS: Acanthocytes Few; Ovalocytes Slight; Platelet Estimate Adequate
[2021-08-30] MEDS ORDERED: FUROSEMIDE INJ 200 MG in SODIUM CHLORIDE 0.9% 50 ML IV SCH (09:00)
[2021-08-30] MEDS: MEROPENEM 500 MG in SODIUM CHLORIDE 0.9% 100 ML IV SCH ×2 (09:00→20:35)
[2021-08-30] MEDS: INSULIN REGULAR 100 UNIT/ML SUBCUT SCH ×4 (10:55→20:36)
[2021-08-30] MEDS: TAMSULOSIN 0.4 MG CAPSULE PO SCH (10:57)
[2021-08-30] MEDS: PANTOPRAZOLE 40 MG TABLET PO SCH (10:57)
[2021-08-30] MEDS: APIXABAN 2.5 MG TABLET PO SCH ×2 (10:57→20:37)
[2021-08-30] MEDS: ASPIRIN EC 81 MG TABLET PO SCH (10:57)
[2021-08-30] MEDS: ASCORBIC ACID 500 MG TABLET PO SCH ×2 (10:58→20:37)
[2021-08-30] MEDS: FUROSEMIDE INJ 200 MG in SODIUM CHLORIDE 0.9% 50 ML IV SCH (22:00)
[2021-08-31] MEDS: PHENYLEPHRINE DRIP 40 MG/250 ML PREMIX IV PRN (00:10)
[2021-08-31] MEDS: HYDROCORTISONE 100 MG VIAL IV SCH ×3 (01:25→17:02)
[2021-08-31] MEDS: PHENYLEPHRINE INJ 160 MG in SODIUM CHLORIDE 0.9% 234 ML IV PRN ×3 (03:07→20:38)
[2021-08-31 04:00] LABS: Basophils % 0.1 % (0.0-0.8); Hematocrit 33.6 VOL% (42.0-52.0); Hemoglobin 11.1 GM/DL (14.0-18.0); Immature Granulocytes % 1.3 %; Immature Granulocytes Absolute 0.16 #; Lymphocytes # 0.6 10*3/uL (1.4-4.0); Mean Corpuscular Volume 75.8 FL (87-102); Mean Platelet Volume 11.2 FL (9.6-12.0); Monocytes % 9.5 % (1.7-12.7); NRBC # 0.66 10*3/uL; Neutrophils % 84.1 % (38.7-73.9); Platelet Count 150 T/CUMM (130-400); Red Blood Count 4.43 MC/CUMM (3.8-5.5); White Blood Count 12.7 T/CUMM (4-12)
[2021-08-31 04:18] LABS: Albumin 2.2 G/DL (3.4-5.0); Bilirubin,Total 6.1 MG/DL (0.20-1.00); Calcium 9.1 MG/DL (8.5-10.1); Osmolality,Calculated 318.1 MOS/KG (273-304); Potassium 4.1 MMOL/L (3.5-5.1); Total Protein 6.3 G/DL (6.4-8.2)
[2021-08-31 04:23] LABS: Hypochromia 2+; Microcytosis 1+; Ovalocytes Slight; Target Cells Few
[2021-08-31 04:24] LABS: Acanthocytes Few; Platelet Estimate Adequate; Polychromasia Slight
[2021-08-31] MEDS: INSULIN REGULAR 100 UNIT/ML SUBCUT SCH ×4 (08:15→20:36)
[2021-08-31] MEDS: MEROPENEM 500 MG in SODIUM CHLORIDE 0.9% 100 ML IV SCH ×2 (08:16→20:34)
[2021-08-31] MEDS: FUROSEMIDE INJ 200 MG in SODIUM CHLORIDE 0.9% 50 ML IV SCH ×2 (10:17→20:35)
[2021-08-31] MEDS: ASPIRIN EC 81 MG TABLET PO SCH (10:58)
[2021-08-31] MEDS: APIXABAN 2.5 MG TABLET PO SCH (10:58)
[2021-08-31] MEDS: ASCORBIC ACID 500 MG TABLET PO SCH ×2 (10:59→20:36)
[2021-08-31] MEDS: TAMSULOSIN 0.4 MG CAPSULE PO SCH (10:59)
[2021-08-31] MEDS: PANTOPRAZOLE 40 MG TABLET PO SCH (10:59)
[2021-08-31 11:37] LABS: ABG Base Excess -3.3 MMOL/L (-2.5-2.5); ABG HCO3 21.7 MMOL/L (20-26); ABG Oxygen Saturation 97.9 % (95-100); ABG PCO2 23.8 MM HG (35-48); ABG PH 7.498 (7.35-7.45); ABG TCO2 16.5 MMOL/L (23-27); Allen Test Positive
[2021-08-31] MEDS: LEVOFLOXACIN INJ 500 MG/100 ML PREMIX IV SCH (11:59)
[2021-08-31] MEDS: DOBUTamine 500 MG/250 ML PREMIX IV PRN (15:50)
[2021-08-31] MEDS: ENOXAPARIN 40 MG/0.4 ML SYRINGE SUBCUT SCH (20:34)
[2021-08-31] MEDS: SODIUM BICARB INJ 100 MEQ in DEXTROSE 5% NACL 0.45% 1,000 ML IV SCH (20:39)
[2021-09-01] MEDS: HYDROCORTISONE 100 MG VIAL IV SCH ×3 (01:56→17:31)
[2021-09-01 03:24] LABS: Basophils % 0.1 % (0.0-0.8); Eosinophils % 0.1 % (0.00-10.9); Hematocrit 33.2 VOL% (42.0-52.0); Immature Granulocytes % 1.5 %; Immature Granulocytes Absolute 0.23 #; Lymphocytes # 0.7 10*3/uL (1.4-4.0); Lymphocytes % 4.4 % (21.2-54.2); Mean Corpuscular HGB Conc 33.1 GM/DL (32-36); Mean Corpuscular Volume 75.3 FL (87-102); Mean Platelet Volume 11.3 FL (9.6-12.0); Monocytes % 8.9 % (1.7-12.7); NRBC # 1.09 10*3/uL; Platelet Count 149 T/CUMM (130-400); Red Blood Count 4.41 MC/CUMM (3.8-5.5); Red Cell Distribution Width 22.6 % (9.3-17.3); White Blood Count 15.4 T/CUMM (4-12)
[2021-09-01 03:46] LABS: Burr Cells Slight; Hypochromia Slight; Lymphocytes 5 % (20-55); Nucleated Red Blood Cells 7 (0-5); Platelet Estimate Adequate; Segmented Neutrophils 88 % (50-85); Total Cells Counted 100
[2021-09-01 03:59] LABS: Albumin 2.1 G/DL (3.4-5.0); Bilirubin,Total 6.2 MG/DL (0.20-1.00); Calcium 9.7 MG/DL (8.5-10.1); Osmolality,Calculated 317.4 MOS/KG (273-304); Potassium 3.8 MMOL/L (3.5-5.1); Total Protein 6.1 G/DL (6.4-8.2)
[2021-09-01] MEDS: PHENYLEPHRINE INJ 160 MG in SODIUM CHLORIDE 0.9% 234 ML IV PRN ×2 (05:50→15:33)
[2021-09-01 06:36] VITALS: BP 101/64
[2021-09-01] MEDS: INSULIN REGULAR 100 UNIT/ML SUBCUT SCH ×3 (07:52→17:01)
[2021-09-01] MEDS: MEROPENEM 500 MG in SODIUM CHLORIDE 0.9% 100 ML IV SCH (08:04)
[2021-09-01] MEDS ORDERED: PANTOPRAZOLE 40 MG VIAL IV SCH (09:00)
[2021-09-01] MEDS: FUROSEMIDE INJ 200 MG in SODIUM CHLORIDE 0.9% 50 ML IV SCH (09:09)
[2021-09-01] MEDS: ENOXAPARIN 40 MG/0.4 ML SYRINGE SUBCUT SCH (09:11)
[2021-09-01] MEDS: ASPIRIN EC 81 MG TABLET PO SCH (09:11)
[2021-09-01] MEDS: TAMSULOSIN 0.4 MG CAPSULE PO SCH (09:16)
[2021-09-01] MEDS: ASCORBIC ACID 500 MG TABLET PO SCH (09:17)
[2021-09-01] MEDS: MORPHINE 4 MG/1 ML VIAL IV PRN ×2 (09:19→16:37)
[2021-09-01] MEDS: DOBUTamine 500 MG/250 ML PREMIX IV PRN (13:45)
[2021-09-01] MEDS ORDERED: ENOXAPARIN 100 MG/ML SYRINGE SUBCUT SCH (15:00)
[2021-09-01] MEDS: PHENYLEPHRINE DRIP 40 MG/250 ML PREMIX IV PRN (16:15)
[2021-09-01] MEDS: SODIUM BICARB INJ 100 MEQ in DEXTROSE 5% NACL 0.45% 1,000 ML IV SCH (17:15)
[2021-09-02] MEDS ORDERED: MEROPENEM 500 MG in SODIUM CHLORIDE 0.9% 100 ML IV SCH (08:00)
== END 2021-09-01 18:00 | disposition hospice, inpatient (51) | DRG 871 ==
LOC: EDUNIT# → EDBD → N.ED 09:50 → N.EDINP 13:03 → SUATTDRO 13:03 → N.ICU 16:54
PROVIDERS: ADMIT Internal Medicine; ATTEND Family Medicine

== ENCOUNTER 2021-09-01 18:37 | Inpatient (IN) ==
[2021-09-01] MEDS ORDERED: INFLUENZA VIRUS VACCINE 0.5 ML SYRINGE IM ONE (19:28)
[2021-09-01] MEDS: LORazepam 2 MG/1 ML VIAL IV PRN ×2 (20:03→22:48)
[2021-09-01] MEDS ORDERED: ACETAMINOPHEN 650 MG SUPP RECTAL PRN (23:37)
[2021-09-02] MEDS: LORazepam 2 MG/1 ML VIAL IV PRN ×3 (06:37→20:59)
[2021-09-02] MEDS: MORPHINE 4 MG/1 ML VIAL IV PRN ×5 (11:15→20:59)
[2021-09-02] MEDS ORDERED: LORazepam 2 MG/1 ML VIAL ONE (20:55)
[2021-09-03] MEDS ORDERED: LORazepam 2 MG/1 ML VIAL ONE ×2 (00:13→05:07)
[2021-09-03] MEDS: LORazepam 2 MG/1 ML VIAL IV PRN ×6 (00:24→21:09)
[2021-09-03] MEDS: MORPHINE 4 MG/1 ML VIAL IV PRN ×6 (00:24→21:13)
[2021-09-04] MEDS: MORPHINE 4 MG/1 ML VIAL IV PRN ×3 (03:20→10:24)
[2021-09-04] MEDS: LORazepam 2 MG/1 ML VIAL IV PRN (03:21)
[2021-09-04 08:22] VITALS: BP 58/38
== END 2021-09-04 15:37 | disposition expired | DRG 951 ==
LOC: SUATTDRO 18:37 → N.ICU 18:37 → N.TELES 09-03 09:53
PROVIDERS: ADMIT Family Medicine; ATTEND Internal Medicine